=== PATIENT | female | born 1985 | race Caucasian/White ===

== ENCOUNTER 2018-05-14 17:31 | Outpatient (REF) | payer BC, SELFPAY ==
--- NOTE | 2018-05-14 16:00 | PAPFT_PTH ---
PATIENT: Louann Reyes LOC: [facility] U#:[id number] AGE/SX: 32/F ROOM: RE05/14/[address]: Sana Fernandez MD : [id number] BED: DIS: 05/14/2018 SPEC #: [id number] RECD: 05/14/18 17:54 STATUS: KATIE RENova #: [id number] CLAYTON: 05/14/18 16:[address]: Sana Fernandez DEPT: [facility] Cytology RECD BY: Verito Charles ENTERED: 05/14/18 17:54 SP TYPE: PAPFT OTHR DR: Michele Workman Tissues: 1 - CX/ENDOCX FOR PAP SMEARS Procedures: PAP THIN PREP/UVM Screening HPV DNA PROBE Comments: [id number]
== END 2018-05-14 17:51 ==
LOC: LBN 17:31
PROVIDERS: PCP Nurse Practitioner Family; Visit Provider Obstetrics & Gynecology
DX: Z12.4 Encounter for screening for malignant neoplasm of cervix (principal); Z11.51 Encounter for screening for human papillomavirus (HPV)
CPT/HCPCS: 88142; 87624

== ENCOUNTER 2018-06-07 01:33 | Outpatient (CLI) | payer BC, SELFPAY ==
--- NOTE | 2018-06-07 14:00 | DI.US_ITS ---
SYMPTOMS/DIAGNOSIS: CRAMPING, DYSMENORRHEA, N94.6 PELVIC ULTRASOUND: Pelvic ultrasound was performed transabdominally and transvaginally. Please see the accompanying data sheet for measurements of the pelvic structures. The ovaries have a normal follicular appearance. No free fluid identified in the cul-de-sac. Limited scanning of the kidneys is unremarkable. Myometrium appears normal. There are some apparent small calcifications in the endometrial stripe in the fundal region. Otherwise, the stripe appears homogeneous and measures about 4 mm in thickness. CONCLUSION: Endometrial calcifications noted in the fundus, which is a nonspecific finding. No other abnormalities seen.
== END 2018-06-07 01:53 ==
PROVIDERS: PCP Nurse Practitioner Family; Visit Provider Obstetrics & Gynecology
DX: N94.6 Dysmenorrhea, unspecified (principal); N85.8 Other specified noninflammatory disorders of uterus
CPT/HCPCS: 76830; 76856

== ENCOUNTER 2020-01-21 02:09 | Outpatient (CLI) | payer BC, SELFPAY ==
--- NOTE | 2020-01-21 11:45 | DI.US_ITS ---
EXAM: US HERNIA CLINICAL HISTORY: assess for hernia, prior abdominal surgery LOWER AREA , R10.9 TECHNIQUE: Ultrasound performed using standard protocol. COMPARISON: US US PELVIS TRANSVAGINAL from 06/07/2018 FINDINGS: Patient is reportedly experiencing right lower quadrant and lower midline abdominal pain. Evaluation of the right lower quadrant for hernia shows no focal evidence of hernia. If there is a high clinic al suspicion abdominal wall hernia additional evaluation with CT may be considered. IMPRESSION: No hernia identified. DATA REPOSITORY:
--- NOTE | 2020-01-21 11:45 | DI.US_ITS ---
EXAM: US PELVIS TRANSVAGINAL CLINICAL HISTORY: dub N93.8 ABNORMAL UTERINE AND VAGINAL BLEEDING TECHNIQUE: Ultrasound performed using standard protocol. COMPARISON: US US HERNIA from 01/21/2020 FINDINGS: Pelvic ultrasound was performed transabdominally and transvaginally. The ovaries have a normal folli cular appearance. Endometrial cavity contains a small amount of fluid, endometrial stripe is about 12 millimeters in th ickness. There is visible scar of the lower uterine segment. No other focal uterine abnor mality seen. No free fluid in the pelvis. Limited scanning of the kidneys is unremarkable. IMPRESSION: Fluid in endometrial cavity, no other abnormality seen. DATA REPOSITORY:
== END 2020-01-21 02:29 ==
PROVIDERS: PCP Nurse Practitioner Family; Visit Provider Obstetrics & Gynecology
DX: R10.31 Right lower quadrant pain (principal); Z98.891 History of uterine scar from previous surgery; N93.8 Other specified abnormal uterine and vaginal bleeding
CPT/HCPCS: 76857; 76830; 76856

== ENCOUNTER 2020-05-03 15:58 | Outpatient (CLI) | payer BC, SELFPAY ==
--- NOTE | 2020-05-03 15:49 | DI.RAD_ITS ---
EXAM: XR KNEE RT 3V AP,LAT,LATANYA CLINICAL HISTORY: eval R knee pain TECHNIQUE: COMPARISON: CR RIGHT KNEE LIMITED 1 OR 2 VIEW from 12/23/2015 FINDINGS: Three views were obtained. No bony or soft tissue abnormality seen. Alignment appears within normal limits. IMPRESSION: RADIATION DOSE DELIVERED: Total DLP
== END 2020-05-03 16:18 ==
PROVIDERS: PCP Nurse Practitioner Family; Referring Provider Nurse Practitioner Family; Visit Provider Student in an Organized Health Care Education/Training Program
DX: M25.561 Pain in right knee (principal)
CPT/HCPCS: 73562

== ENCOUNTER 2020-05-12 01:17 | Outpatient (CLI) | payer BC, SELFPAY ==
--- NOTE | 2020-05-12 07:00 | DI.MRI_ITS ---
EXAM: MR LOWER JOINT RT WO CLINICAL HISTORY: R knee pain, h/o surgery,INTERNAL DERANGEMENT,M23.91. TECHNIQUE: Multiplanar multisequence MRI was performed. COMPARISON: MR MR KNEE RT W/O CONTRAST from 12/22/2015 FINDINGS: BONES: There is no fracture or contusion pattern. JOINTS: Articular cartilage is unremarkable. Small amount of fluid in the joint space which is probab ly within normal limits. TENDONS: Extensor mechanism: Unremarkable. Medial retinaculum: Unremarkable. Lateral retinaculum: Unremarkable. Popliteus: Unremarkable. MUSCLES: Unremarkable. MENISCI: The medial meniscus is unremarkable. The lateral meniscus is unremarkable. SOFT TISSUES: Unremarkable. LIGAMENTS: Anterior Cruciate: Linear hyperintense signal is seen within the anterior cruciate ligament. Overall the fibers appear intact. Sprain or partial tear cannot be excluded. Posterior Cruciate: Unremarkable. Medial Collateral:Unremarkable. Lateral Collateral: Unremarkable. OTHER: IMPRESSION: 1. No evidence of a meniscal tear or osseous injury. 2. Linear hyperintense signal seen in the anterior cruciate ligament. Overall fibers appear to be in tact. Sprain or partial tear may be considered. DATA REPOSITORY:
== END 2020-05-12 01:37 ==
PROVIDERS: PCP Nurse Practitioner Family; Visit Provider Student in an Organized Health Care Education/Training Program
DX: M23.8X1 Other internal derangements of right knee (principal)
CPT/HCPCS: 73721

== ENCOUNTER 2020-06-07 16:02 | Outpatient (CLI) | payer BC, SELFPAY ==
--- NOTE | 2020-06-07 15:45 | DI.RAD_ITS ---
EXAM: XR HIP RT AP LAT ONLY CLINICAL HISTORY: R hip and knee pain. TECHNIQUE: 2D digital imaging was performed. COMPARISON: No exams were available for comparison FINDINGS: BONES: No acute fracture is present. No bony destructive lesion is seen. JOINTS: No dislocation present. Is minimal spurring from the inferior acetabulum. SOFT TISSUE: An IUD is incidentally noted. IMPRESSION: Minimal degenerative changes of the inferior hip joint. DATA REPOSITORY: RADIATION DOSE DELIVERED:
== END 2020-06-07 16:22 ==
PROVIDERS: PCP Nurse Practitioner Family; Referring Provider Nurse Practitioner Family; Visit Provider Student in an Organized Health Care Education/Training Program
DX: M16.11 Unilateral primary osteoarthritis, right hip (principal)
CPT/HCPCS: 73502

== ENCOUNTER 2020-08-26 10:21 | Outpatient (CLI) | payer BC, SELFPAY ==
[2020-08-26 20:23] LABS: COVID-19 RT-PCR UVMMC Result Negative (Negative)
== END 2020-08-26 10:41 ==
PROVIDERS: PCP Nurse Practitioner Family; Visit Provider Nurse Practitioner Family
DX: Z11.52 Encounter for screening for COVID-19 (principal)
CPT/HCPCS: U0003

== ENCOUNTER 2020-11-19 02:48 | Outpatient (CLI) | payer BC, SELFPAY ==
[2020-11-19 12:11] LABS: ESR 7 mm//hr (0-20)
[2020-11-19 13:42] LABS: C-Reactive Protein 0.36 mg/dL (0.0-0.3)
[2020-11-19 16:35] LABS: Rheumatoid Factor <8.6 IU/mL (<12.0)
[2020-11-21 18:49] LABS: Anaplasma phagocytophilum Negative (Negative); B. miyamotoi PCR Negative (Negative); Babesia divergens/MO-1 Negative (Negative); Babesia duncani Negative (Negative); Babesia microti Negative (Negative); Ehrlichia chaffeensis Negative (Negative); Ehrlichia ewingii/canis Negative (Negative); Ehrlichia muris eauclairensis Negative (Negative)
[2020-11-22 11:15] LABS: Lyme Ab w Rflx to Lyme Confirm Negative (Negative)
[2020-11-22 14:41] LABS: ANA Interpretation Negative (Negative)
== END 2020-11-19 02:49 | disposition home or self-care (01) ==
LOC: LBO 02:48
PROVIDERS: PCP Nurse Practitioner Family; Visit Provider Student in an Organized Health Care Education/Training Program
DX: M25.561 Pain in right knee (principal); G89.29 Other chronic pain
CPT/HCPCS: 36415; 85652; 87798; 86038; 86140; 86431; 86618

== ENCOUNTER 2020-12-29 10:56 | Emergency (ER) | payer BC, SELFPAY ==
[2020-12-29 11:06] VITALS: BP 129/77; PULSE 78; TEMP 36.3; O2SAT 97
--- NOTE | 2020-12-29 11:45 | DI.US_ITS ---
Exam(s) US LOWER EXTREMITY VENOUS RT EXAM: US LOWER EXTREMITY VENOUS RT CLINICAL HISTORY: pain/swelling TECHNIQUE: Grayscale, color, and doppler imaging of the deep venous system of the right lower extrem ity was performed. COMPARISON: US US PELVIS TRANSVAGINAL from 01/21/2020 FINDINGS: There is no evidence of intraluminal thrombus and there is normal compression and augmentation demons trated within the common femoral vein, femoral vein, and popliteal vein. In the ipsilateral calf the interrogated veins also exhibit normal compression/ augmentation properti es. The ipsilateral saphenofemoral junction is patent. IMPRESSION: 1. No evidence of DVT in the right lower extremity. 2. DATA REPOSITORY:
--- NOTE | 2020-12-29 11:50 | ED.GENADUL_ITS ---
Discharge Plan Disposition Patient Disposition: HOME Condition: Stable Discharge Details Clinical Impression: Right knee pain Primary Care Provider: Michele Workman ED Provider: Rubio Srinivasan Home Meds and New Rx's Prescriptions: New cyclobenzaprine 5 mg tablet 5 mg PO TID PRNQty: 10 RF: 0 Continued valacyclovir [Valtrex] 1 gram tablet 1,000 mg PO DAILY Qty: 60 RF: 0 Zyrtec 10 mg capsule 10 mg PO DAILY RF: 0 Mirena 20 mcg/24 hours (5 yrs) 52 mg intrauterine device 1 device IY ONCE RF: 0 budesonide-formoterol [Symbicort] 10.2 GM HFA aerosol inhaler 2 puff Inhalation BID RF: 0 albuterol sulfate [ProAir HFA] 8.5 GM HFA aerosol inhaler 1 - 2 puff Inhalation Q6H PRN RF: 0 Knee Brace Qty: 1 RF: 0 (DME) Custom Fitted Knee Brace See Rx Instructions .ROUTE .MEDSUPPLY Qty: 1 RF: 0 acetaminophen [Tylophen] 500 MG capsule 500 mg PO Q6H PRN PRNQty: 120 RF: 0 naproxen sodium [Aleve] 220 mg Tablet 220 mg PO BID RF: 0 Discharge Instructions Instructions: Knee Pain (ED) Additional Instructions: At this time your x-ray and ultrasound are unremarkable for emergent process. We have fitted you with our hinged brace here in the ER, when you feel like your normal hinged brace is more comfortable I do recommend wearing that brace instead. Use crutches as needed, advance activity as tolerated. [id number] Tylenol and/or Motrin as directed for discomfort. Flexeril as directed, this medication may cause drowsiness. Rest, elevate, cool compresses every 2 hours for 20 minutes. Please watch for new or worsening symptoms and return to the ER for any concerns. I do understand that you are having a difficult time with your second opinion by orthopedics in a timely fashion, I do recommend following up with orthopedics as soon as possible. Discharge Data Discharge Date/Time-TO BE ENTERED AT DEPARTURE: 12/29/20 14:15 Medical Decision Making This is a 35-year-old female with chronic right knee pain, has been seen by orthopedics and is now seeking a second opinion. Unfortunately she has already had a MRI, not sure what more I have to offer here in the ER setting. Given she is reporting increased pain, will obtain ultrasound for potential DVT. Patient reports that her pain feels deep in my upper leg, is requesting a femur x- ray. Given there is no recent obvious trauma, I do not believe that obtaining repeat x-ray of the knee is indicated. No evidence of septic joint. Patient will be given p.o. Tylenol and I will provide a prescription for Flexeril for her spasms. Both x-ray of the right femur and ultrasound of right lower extremity read as negative per radiology. Discussed imaging with patient. Given she feels as though her current splint does not fit properly I will provide her with a hinged brace that we have here in our ER and she will go back to her typical brace when her swelling is improved. We discussed importance of resting, elevating, icing, wearing a brace and using crutches, advancing activity as tolerated. I will provide a short- term prescription for muscle relaxers. Discussed the importance of outpatient orthopedic follow-up for her second opinion. Patient was given standard discharge and return precautions. She has no additional questions or concerns and is comfortable with this plan. Medical Records Medical records reviewed: Yes I reviewed the patient's medical records. Imaging Data Radiologic Study: Attestation: I personally reviewed and interpreted this imaging study as follows: Imaging: X-Ray Radiologist's impression: Right femur negative Radiologic Study #2: Attestation: I personally reviewed and interpreted this imaging study as follows: Imaging: Ultrasound Radiologist's impression: Right lower extremity negative HPI General Mode of arrival: ambulatory (crutches) . Date/Time Provider Initiated Documentation: 12/29/20 11:31 . Limitations to Documentation: no limitations . Information obtained by: patient . HPI Narrative: This is a 35-year-old female with past medical history of asthma, dysmenorrhea, chronic right knee pain presenting for increased right knee pain. She states that last February she tore her ACL, was seen by Dr. Madison, is in the process of trying to obtain a second opinion but that scheduled appointment is not until July. Currently Dr. Madison is on vacation, Dr. Deleon is unable to see her in the meantime, and [facility] will not move her appointment up. She already has crutches and a hinged brace. She states that a few days ago walking down the stairs she feels inc reased pain in her knee that traveled up her leg. She reports that her upper leg seems to be spasming at times, is more swollen than baseline, she is having difficulty wearing her typical brace. She denies any chest pain, shortness of breath, fever, redness, numbness or weakness. Does report occasional tingling in her distal right leg. Patient has been offered muscle relaxer therapy because of her occasional spasms in her right leg but has declined up to this point. Patient reports that given her increased pain, she is simply not sure what to do next and given she cannot be seen by orthopedics she is coming to the ER instead. She denies recent illness or trauma. Reports the pain is severe worse with movement or bearing weight. Related Data Home Medications Medication Instructions Recorded Confirmed budesonide-formoterol [Symbicort] 2 puff INHALATION BID inhaler 11/16/14 12/29/20 albuterol sulfate [ProAir HFA] 1 - 2 puff INHALATION Q6H PRN 12/23/15 12/29/20 inhaler acetaminophen [Tylophen] 500 mg PO Q6H PRN PRN #120 cap 08/08/16 12/29/20 cetirizine 10 mg capsule 10 mg PO DAILY 07/11/19 12/29/20 valacyclovir 1 gram tablet 1,000 mg PO DAILY #60 tab 01/28/20 12/29/20 levonorgestrel 20 mcg/24 hours (6 1 device IY ONCE 04/19/20 12/29/20 yrs) 52 mg intrauterine device Custom Fitted Knee Brace #1 ea 06/24/20 cyclobenzaprine 5 mg PO TID PRN #10 tab 12/29/20 naproxen sodium [Aleve] 220 mg PO BID 12/29/20 12/29/20 Previous Rx's Medication Instructions Recorded acetaminophen [Tylophen] 500 mg PO Q6H PRN PRN #120 cap 08/08/16 valacyclovir 1 gram tablet 1,000 mg PO DAILY #60 tab 01/28/20 Custom Fitted Knee Brace #1 ea 06/24/20 cyclobenzaprine 5 mg PO TID PRN #10 tab 12/29/20 Allergies Allergy/AdvReac Type Severity Reaction Status Date / Time Sulfa (Sulfonamide Allergy Severe hives Verified 12/29/20 11:14 Antibiotics) clarithromycin Allergy Verified 12/29/20 11:14 Penicillins Allergy Verified 12/29/20 11:14 doxycycline AdvReac Intermediate pt's hands Verified 12/29/20 11:14 turned orange lactose AdvReac Intermediate Diarrhea Verified 12/29/20 11:14 General Stated Complaint: Orthopedic BRANDO: 3 Review of Systems Constitutional Constitutional: Denies fever(s) Cardiovascular Cardiovascular: Denies chest pain and Denies dyspnea Respiratory Respiratory: Denies cough and Denies dyspnea Musculoskeletal Musculoskeletal: Denies deformity, Reports arthralgias, Denies numbness and Reports stiffness Integumentary/Breasts Skin/Breast: Denies erythema Neurologic Neurologic: Denies numbness PFSH Medical History Asthma Dysmenorrhea Genital herpes simplex IUD surveillance Pelvic pain Surgical History section (02/22/12) primary elective c/s (patient concern re prior hx HSV) Social History Smoking/Tobacco Use Status: Never Smoking risk assessment performed?: Yes Alcohol Intake: never Drug use: Never Substance use type: does not use Current gender identity: female Do you feel safe at home: Yes Do you feel safe in your relationship?: Yes Female Reproductive History Menstrual control method: permanent sterilization History History 2 Para Hx # Term Pregnancies 2 Multiple births Hx # Pregnancies Ectopic pregnancies AB induced Hx Number of Living Children AB spontaneous Exam Const General: cooperative, healthy appearing, comfortable and no acute distress Orientation: alert and awake HENVA Head: normal to inspection, normocephalic and atraumatic Eyes General: appearance normal, both eyes and all related structures Conjunctivae: conjunctivae normal Neck Neck: normal visual inspection, trachea midline and supple Resp Effort & Inspection: normal respiratory effort and able to speak in complete sentences Cardio Rate: regular rate Rhythm: regular rhythm Skin General skin exam: no rashes or lesions noted Neuro General: patient alert, patient awake, moves all extremities and no focal motor deficits Cognition: normal cognition Speech: speech normal Gait: gait assisted Method: crutches Motor: muscle tone normal throughout Sensory Exam: no sensory deficits noted Extrem General: full ROM and capillary refill normal Right lower extremity: full ROM, normal capillary refill, hip/thigh (Hip unremarkable), knee Details: tenderness, swelling, normal ROM and knee ligament exam normal; no ecchymosis and no crepitus, lower leg Details: normal to inspection; no erythema, no tenderness, no localized swelling and no palpable cords, ankle Details: normal to inspection and no edema; no tenderness and no swelling and foot Details: normal capillary refill and normal to inspection Other: Right knee with diffuse mild anterior and superior discomfort as well as swelling. There is no warmth, erythema, ecchymosis, deformity. Skin is intact. Full range of motion. Neuro, vascular, tendon intact. Calf is unremarkable. Without erythema, warmth, palpable cord. Normal dorsalis pedal pulse and capillary refill. Psych Appearance: grossly normal Mental Status: mental status grossly normal Course Vital Signs Vital signs: Vital Signs Temperature 36.3 C L 12/29/20 11:06 Pulse 78 12/29/20 11:06 Blood Pressure 129/77 12/29/20 11:06 Pulse Oximetry 97 12/29/20 11:06 Temperature 36.3 C L 12/29/20 11:06 Temperature Source Temporal Artery Scan 12/29/20 11:06 Pulse 78 12/29/20 11:06 Respiratory Effort Non-Labored 12/29/20 11:12 Blood Pressure 129/77 12/29/20 11:06 Blood Pressure Position Sitting 12/29/20 11:06 Pulse Oximetry 97 12/29/20 11:06 Oxygen Delivery Method Trach Collar 12/29/20 11:06 Oxygen Flow Rate 0 12/29/20 11:06 Pain Level 8 12/29/20 11:06
--- NOTE | 2020-12-29 12:15 | DI.RAD_ITS ---
Exam(s) XR FEMUR RT EXAM: XR FEMUR RT CLINICAL HISTORY: pain. TECHNIQUE: 2D digital imaging was performed. COMPARISON: No exams were available for comparison FINDINGS: There is no evidence of fracture of the right femur. Region of the hip appears unremarkable. No oss eous lesions. No evidence of hip dysplasia. No joint space narrowing. IUD noted in the central pel vis. IMPRESSION: No significant radiograph findings in the right femur. DATA REPOSITORY: RADIATION DOSE DELIVERED:
[2020-12-29] MEDS: Acetaminophen 500 MG TAB (13:36)
== END 2020-12-29 14:15 | disposition home or self-care (01) ==
PROVIDERS: Emergency Provider Physician Assistant; PCP Nurse Practitioner Family
DX: M25.561 Pain in right knee (principal)
CPT/HCPCS: 73552; 99284; 93971; 99283

== ENCOUNTER 2021-02-08 16:02 | Outpatient (CLI) | payer BC, SELFPAY ==
--- NOTE | 2021-02-08 15:45 | DI.RAD_ITS ---
Exam(s) XR FOOT LT LIMITED EXAM: XR FOOT LT LIMITED CLINICAL HISTORY: left foot pain. TECHNIQUE: 2D digital imaging was performed. COMPARISON: Prior outside institution x-rays 01/31/2021 FINDINGS: Again noted is a previously described transverse fracture at the level of the neck of the proximal ph alanx of the 2nd toe. Appearance is unchanged. No disc significant displacement. No intra-articula r extension. No radiopaque foreign body. No osseous lesions. IMPRESSION: Proximal phalanx 2nd toe fractures above, radiographically unchanged from 01/31/2021. DATA REPOSITORY: RADIATION DOSE DELIVERED:
== END 2021-02-08 16:03 | disposition home or self-care (01) ==
LOC: DIORS 16:02
PROVIDERS: PCP Nurse Practitioner Family; Referring Provider Nurse Practitioner Family; Visit Provider Student in an Organized Health Care Education/Training Program
DX: M79.672 Pain in left foot (principal); S92.592D Other fracture of left lesser toe(s), subsequent encounter for fracture with routine healing
CPT/HCPCS: 73620

== ENCOUNTER 2021-02-24 02:01 | Outpatient (CLI) | payer BC, SELFPAY ==
--- NOTE | 2021-02-24 14:35 | DI.MRI_ITS ---
Exam(s) MR LOWER JOINT RT WO EXAM: MR LOWER JOINT RT WO CLINICAL HISTORY: RIGHT KNEE PAIN,INTERNAL DERANGEMENT,M25.561,M23.91. TECHNIQUE: Multiplanar multisequence MRI Examination was performed. COMPARISON: 12 May 2020 FINDINGS: There is a small joint effusion. The marrow signal is normal. There is again noted to be fluid with in the anterior cruciate ligament. Posterior cruciate ligament, medial and lateral collateral ligame nts and extensor mechanism appear intact. No meniscal tear is are seen. No cartilage defects are id entified. IMPRESSION: Stable appearance of fluid within the anterior cruciate ligament. Small joint effusion. No meniscal tear. DATA REPOSITORY:
== END 2021-02-24 02:21 ==
PROVIDERS: PCP Nurse Practitioner Family; Visit Provider Student in an Organized Health Care Education/Training Program
DX: M23.91 Unspecified internal derangement of right knee (principal); M25.461 Effusion, right knee
CPT/HCPCS: 73721

== ENCOUNTER 2021-04-05 10:27 | Outpatient (CLI) | payer BC, SELFPAY ==
--- NOTE | 2021-04-05 10:15 | DI.RAD_ITS ---
Exam(s) XR FOOT LT LIMITED EXAM: XR FOOT LT LIMITED CLINICAL HISTORY: fx of toe of left foot f/u TECHNIQUE: COMPARISON: CR XR FOOT LT LIMITED from 02/08/2021 FINDINGS: Two views were obtained. Previous described fracture of the proximal phalanx of the 2nd toes again n oted and appears to be healing with no change in alignment comparison with previous examination of Leonarda . IMPRESSION: RADIATION DOSE DELIVERED: Total DLP
== END 2021-04-05 10:28 | disposition home or self-care (01) ==
LOC: DIORS 10:28
PROVIDERS: PCP Nurse Practitioner Family; Referring Provider Nurse Practitioner Family; Visit Provider Student in an Organized Health Care Education/Training Program
DX: S92.512D Displaced fracture of proximal phalanx of left lesser toe(s), subsequent encounter for fracture with routine healing (principal); X58.XXXD Exposure to other specified factors, subsequent encounter
CPT/HCPCS: 73620

== ENCOUNTER 2021-06-09 10:03 | Outpatient (CLI) | payer BC, SELFPAY ==
[2021-06-09 10:17] VITALS: BP 119/70; PULSE 81; RESP 18; TEMP 37; O2SAT 97
[2021-06-09 10:40] VITALS: PULSE 88; O2SAT 100
--- NOTE | 2021-06-09 10:43 | PDOC.PAIN_ITS ---
Pain Clinic Procedure Note Procedure Note Procedure Note: INTRA-ARTICULAR RIGHT KNEE JOINT SYNVISC-ONE INJECTION Date of Service: June 09, 2021 Patient: Louann Reyes Provider: Timi Madsen DO, MPH Pre-operative diagnosis: Knee Osteoarthritis Post-operative diagnosis: Same Pre-procedure pain: VAS= 1-2/10 COMMENTS: I previously evaluated her in the office Louann Reyes has been referred to the [facility] for intra- articular RIGHT knee joint Synvisc injection. Louann was interviewed and the medical record reviewed. There were no medical, pharmacologic, radiographic or other structural contraindications to attempting fluoroscopically guided intra-articular RIGHT knee joint Synvisc injection. Risks and potential side effects as well as potential benefit of the procedure were reviewed with Louann, and HER voiced concerns were addressed. After I believed that the patient was completely informed, the printed consent form was signed. Standard time-out procedure was performed. Louann was placed in the supine position on the fluoroscopy table and automated b lood pressure cuff and pulse oximeter applied. The skin entry point for approaching superolateral aspect of the RIGHT patellafemoral area was identified under the most advantageous fluoroscopic view and marked. Following thorough Chlorhexadine preparation of the skin and draping, 1% lidocaine infiltration of the skin entry point and subcutaneous tissues was accomplished using a 1.5 25G needle. Next, the 1.5 22G needle was advanced to the center of the patella in a lateral to medial approach under fluoroscopic guidance into the RIGHT knee joint. Intra-articular placement was confirmed by a clear arthrogram resulting from the injection of 2 ml Omnipaque 240. Next, 6 mls of Synvisc-One mixed with 3 mls of 1% Lidocaine was injected into the joint. (48 mls of Omnipaque was wasted) Louann's vital signs were stable throughout the procedure and were as recorded in the docflowsheet by the nursing staff. If given, dosages of intravenous drugs for anxiolysis and analgesia were documented in MAR. Follow up plans and appointments were discussed with the Louann. Post procedure instruction was given as documented in nursing documentation and having met discharge criteria, Louann was discharged from the [facility]. COMMENTS: No apparent complications. Post-procedure pain: VAS= 0/10 F/U with our office by phone I personally performed this entire procedure. Timi Madsen DO, MPH Attending Physician [employer], Subspecialty board certified in Pain Management
--- NOTE | 2021-06-09 10:46 | DI.RAD_ITS ---
Exam(s) XR PAIN CLINIC FLUORO JOINT IN EXAM: XR PAIN CLINIC FLUORO JOINT IN CLINICAL HISTORY: Dx: Internal derangement of right knee TECHNIQUE: 2D and realtime digital imaging was performed. Radiologist not present. CONTRAST MATERIAL: None. COMPARISON: MR MR LOWER JOINT RT WO from 02/24/2021 MR MR LOWER JOINT RT WO from 02/24/2021 FINDINGS: Fluoroscopy was provided for pain management therapy. Please refer to procedure report or details. Submitted image reveals needle access into the suprapatellar bursa via lateral approach. Contrast in jected Cumulative dose: Ka,r=0.56 mGy IMPRESSION: RADIATION DOSE DELIVERED:
[2021-06-09] MEDS: Hylan G-F 20 48 MG/6 ML SYR IU (10:48)
[2021-06-09] MEDS: Omnipaque 240 MG/ML 50 ML BTL IJ (10:48)
== END 2021-06-09 10:04 | disposition home or self-care (01) ==
LOC: PC 10:04
PROVIDERS: PCP Nurse Practitioner Family; Visit Provider Preventive Medicine Occupational Medicine
DX: M17.11 Unilateral primary osteoarthritis, right knee (principal)
CPT/HCPCS: 20610; 77002; J3490; Q9967

== ENCOUNTER 2021-10-13 11:23 | Outpatient (CLI) | payer BC, SELFPAY ==
--- NOTE | 2021-10-13 06:00 | DI.RAD_ITS ---
Exam(s) XR PAIN CLINIC FLUORO JOINT IN EXAM: XR PAIN CLINIC FLUORO JOINT IN CLINICAL HISTORY: Dx: Chronic Knee pain TECHNIQUE: 2D and realtime digital imaging was performed. Radiologist not present. CONTRAST MATERIAL: None. COMPARISON: No exams were available for comparison FINDINGS: Fluoroscopy was provided for pain management therapy. Please refer to procedure report or details. Cumulative dose: Tutur=4.47 mGy IMPRESSION: RADIATION DOSE DELIVERED:
[2021-10-13 11:34] VITALS: BP 120/81; PULSE 78; RESP 16; TEMP 36.7; O2SAT 97
[2021-10-13] MEDS: Omnipaque 240 MG/ML 50 ML BTL IJ (12:14)
[2021-10-13] MEDS: Bupivacaine 0.5% Pres-Free 10 ML VIAL IJ (12:14)
[2021-10-13 12:15] VITALS: BP 116/78; PULSE 60; RESP 18; O2SAT 99
--- NOTE | 2021-10-13 12:19 | PDOC.PAIN ---
Pain Clinic Procedure Note Procedure Note Procedure Note: RIGHT GENICULAR NERVE BLOCK Date of Service: October 13, 2021 Patient: Louann Reyes Provider: Timi Madsen DO, MPH Pre-operative diagnosis: Knee pain Post-operative diagnosis: Same Pre-procedure pain: VAS= 6/10 COMMENTS: She was previously evaluated in our clinic. Louann Reyes has been referred [facility] the [facility] for RIGHT genicular nerve block. Louann was interviewed and the medical record reviewed. There were no medical, pharmacologic, radiographic or other structural contraindications to attempting fluoroscopically guided RIGHT genicular nerve block. Risks and potential side effects as well as potential benefit of the procedure were reviewed with Louann , and HER voiced concerns were addressed. After I believed that the patient was completely informed, the printed consent form was signed. Standard time-out procedure was performed. Louann was placed in the supine position on the fluoroscopy table and automated blood pressure cuff and pulse oximeter applied. The skin entry points for approaching RIGHT superolateral genicular nerve, the superomedial genicular nerve, the terminal branch of the nerve vastus intermedius and the inferomedial genicular was identified under the most advantageous fluoroscopic view and marked. Following thorough Chlorhexadine preparation of the skin and draping, 1% lidocaine infiltration of the skin entry point and subcutaneous tissues was accomplished using a 1.5 25G needle. Next, the 3.5 25G spinal needle was advanced to os at the location of the specific nerve root using fluoroscopic guidance. Next, 1 ml of 1% Lidocaine was injected at each site. The needles were removed without difficulty. Oneils vital signs were stable throughout the procedure and were as recorded in the docflowsheet by the nursing staff. If given, dosages of intravenous drugs for anxiolysis and analgesia were documented in MAR. Follow up plans and appointments were discussed with the Louann . Post procedure instruction was given as documented in nursing documentation and having met discharge criteria, Louann was discharged from the [facility]. COMMENTS: No apparent complications. Post-procedure pain: VAS = 8/10. The patient will keep track of her {RIGHT knee pain over the next four hours. If Louann has sufficient pain relief, Louann will be a candidate for radiofrequency ablation at the same nerves. Mason WJ1, Hanny SJ, Chaitanya JG, Rodrigo PachecoG, Crow LEON, Rufina PH, Scott JW. Radiofrequency treatment relieves chronic knee osteoarthritis pain: a double-blind randomized controlled trial. Pain. 2011 Oct;152(3):481-7. doi: 10.1016/j.pain.2010.09.029. Subha S1, Orion ON2, Russell Y3, ?zl?belkys P2, Juanpablo U1, Devendra ?m?rl? I. Which one is more effective for the clinical treatment of chronic pain in knee osteoarthritis: radiofrequency neurotomy of the genicular nerves or intra-articular injection? Int J Rheum Dis. 2016 Mar 31. F/U with our office by phone I personally performed this entire procedure. Timi Madsen DO, MPH Attending Physician [facility]
== END 2021-10-13 11:24 | disposition home or self-care (01) ==
LOC: PC 11:24
PROVIDERS: PCP Nurse Practitioner Family; Visit Provider Preventive Medicine Occupational Medicine
DX: M25.561 Pain in right knee (principal)
CPT/HCPCS: 64454; 77002; Q9967

== ENCOUNTER 2022-03-16 15:47 | Outpatient (CLI) | payer BC, SELFPAY ==
[2022-03-16 17:09] LABS: TSH (W/Ref FT4) 2.06 uIU/mL (0.36-3.74)
[2022-03-18 09:03] LABS: HIV-1/2 Ag & Ab Screen Negative (Negative)
[2022-03-18 15:08] LABS: Chlamydia Result Negative (Negative); GC Result Negative (Negative)
[2022-03-20 10:55] LABS: Syphilis Serology (RPR) Negative (Negative)
[2022-03-20 11:04] LABS: Hepatitis A Antibody IgM Negative (Negative); Hepatitis B Core Antibody Negative (Negative); Hepatitis B surface Ag Negative (Negative); Hepatitis C Ab w Rflx HCV PCR Negative (Negative)
== END 2022-03-16 15:48 | disposition home or self-care (01) ==
LOC: LBO 15:48
PROVIDERS: PCP Nurse Practitioner Family; Visit Provider Obstetrics & Gynecology
DX: N92.5 Other specified irregular menstruation; Z11.3 Encounter for screening for infections with a predominantly sexual mode of transmission; Z11.59 Encounter for screening for other viral diseases; Z11.4 Encounter for screening for human immunodeficiency virus [HIV]; R63.4 Abnormal weight loss
CPT/HCPCS: 36415; 86704; 86709; 86803; 87340; 87389; 87491; 87591; 84443; 86592

== ENCOUNTER 2022-04-10 10:43 | Day surgery (SDC) | payer BC, SELFPAY ==
--- NOTE | 2022-04-10 06:39 | W.COLOREPORT ---
Colonoscopy Report Date of procedure: 04/10/22 Pre-op diagnosis general: Rectal bleeding Post-op diagnosis procedure note: other (polyps) Procedure: Colonoscopy with polypectomy Surgeon: Suzette Heck Anesthesia Type: General:No Airway Estimated blood loss (mL): 3 Pathology: other (cecal polyp) Complications: None Disposition: same day Indications: The patient? is a pleasant ? 36-year-old female who is here because of rectal bleeding. ? The bleeding is cyclical and happens either 2 to 3 days before or after her period.? It can be bright red or dark.? It can be a scant amount or clots.? Due to the fact this is cyclical I am not sure whether this would be just from hemorrhoids.? I am also worried that she is having clots.? I have recommended that we do a colonoscopy and if I find some internal hemorrhoids we will go ahead and do a banding as well.? The procedure and risks were discussed.? The prep was reviewed in detail.? Risks, benefits and complications have been reviewed. Complications include but are not limited to bleeding, pain, perforation, missed small lesion/polyp, sore throat, aspiration and adverse reaction to the medications. Questions were entertained and answered to their satisfaction and they wished to proceed. No guarantees were given or implied. Prep: Miralax/Dulcolax Procedure Start Time: 13:16 Procedure End Time: 13:39 Retraction Time: 10 minutes Findings: 2 polyps Procedure Description: After informed consent was obtained the patient was taken to the procedure room and placed in a left decubitous position. Monitors were applied and a time out was done. The patients name, date of , procedure, allergies to medications and metal in their body was reviewed. The patient was then sedated. Once sedated and comfortable a rectal exam was done. External exam was normal. Internal exam revealed a normal sphincter tone and no palpable masses. The scope was then introduced and retro-flexed. No internal hemorrhoids, polyps or masses were identified on retro-flexion. There were internal hemorrhoidal skin tags but nothing to band. The scope was then advanced to the cecum without difficulty. The ileocecal valve and appendiceal orifice were identified. The prep was adequate. The scope was then slowly retracted over 10 minutes back into the rectum. Polyps were removed with cold forceps in the cecum and sigmoid colon. There was no diverticulosis noted. The scope was removed and the patient was woken up and taken back to Same day surgery in stable condition. The patient tolerated the procedure well and there were no immediate complications. Follow up: The patient should follow up in 5 years unless they develop changes in bowel habits or other new gastrointestinal complaints.
--- NOTE | 2022-04-10 06:41 | W.PM.DSUDISC ---
Discharge Plan Disposition Patient Disposition: HOME Condition: Good Discharge Details Reason For Visit: colonoscopy Attending Provider: Suzette Heck Primary Care Provider: Michele Workman Home Meds and New Rx's Prescriptions: Continued albuterol sulfate 2.5 mg /3 mL (0.083 %) solution for nebulization 2.5 mg inhalation Q4H PRN Zyrtec 10 mg capsule 10 mg PO DAILY prochlorperazine maleate 5 mg tablet See Rx Instructions PO TID PRN (Reason: nausea and vomiting) Qty: 90 3RF Rx Instructions: 5-10mg PO three times a day PRN; budesonide-formoterol [Symbicort] 10.2 GM HFA aerosol inhaler 2 puff Inhalation BID Label Comments: 08/03/16 Pt states she does not use. PG 5.5.16 pt states this is a PRN med.HE Knee Brace Qty: 1 0RF Rx Instructions: Custom hinged knee brace with open patella for ligamentous instability. (DME) Custom Fitted Knee Brace See Rx Instructions .ROUTE .MEDSUPPLY Qty: 1 0RF Rx Instructions: Please fit and place a stability knee brace for ligamentous laxity and hyperextension of right knee. valacyclovir [Valtrex] 500 mg tablet 500 mg PO DAILY Qty: 90 3RF acetaminophen [Tylophen] 500 MG capsule 500 mg PO Q6H PRN PRNQty: 120 0RF Discontinued bisacodyl [Dulcolax (bisacodyl)] 5 mg tablet,delayed release (DR/EC) 5 mg PO ONCE Qty: 4 0RF Rx Instructions: Take according to provider's instructions for colonoscopy prep. polyethylene glycol 3350 17 gram/dose powder 17 g PO ONCE Qty: 238 0RF Rx Instructions: To be taken as directed by prescriber's office for colonoscopy prep. Discharge Instructions Instructions: Colorectal Polyps (DC) Additional Instructions: Findings: 2 polyps Internal hemorrhoid skin tags Follow up: 5 years Please call if you develop: fevers >101.5 Nausea or Vomiting Abdominal pain that is not transient Rectal bleeding that is more then a tbsp A hard abdomen and inability to pass gas DAY SURGERY UNIT POST ENDOSCOPY INSTRUCTIONS Instructions for everyone who is given Anesthesia: For your safety, please do the following for the next 24 Hours: a. Do not drive or operate dangerous equipment b. Do not drink alcohol beverages or use any recreational drugs for the first 24 hours or while taking pain medications. The medications in your body may have a reaction that can be dangerous. c. Do not make any important decisions or sign any important papers 1. Generally there are no restrictions on your activity after a day or so has gone by, but you may feel a bit fatigued for a few days. 2. After you arrive home you may have a light meal and return to a normal diet as you can tolerate it without feeling sick to your stomach. 3. After surgery, you may feel pain or discomfort. This should be only transient, but if it persists please contact your doctor. 4. If there are any questions regarding the findings of your procedure, please feel free to contact your doctor. 6. If you are unable to contact your doctor with a problem, contact the hospital at [phone]. 7. Continue all your regular medications unless directed otherwise. I understand the above instructions and have no questions. Signature of Patient or Responsible Adult Escort Date/Time Name of Responsible Adult Escort Signature of Nurse Date/Time Activity:: Activity as Tolerated Diet:: As Tolerated Discharge Orders Discharge Orders: Discharge Order (Routine); Ordered 04/10/22 Ordered By: Suzette Heck
[2022-04-10 11:24] VITALS: BP 134/73; PULSE 83; RESP 16; TEMP 36.7; O2SAT 95
[2022-04-10] MEDS: Lactated Ringers 1,000 ML 80 ML IV (12:05)
--- NOTE | 2022-04-10 12:37 | W.ANESPRE ---
General Info Date of Service Date Performed: 04/10/22 Height: 5 ft 1 in Weight: 73.4 kg Body Mass Index (BMI): 30.5 Surgical Procedure: Operation Date: 04/10/22 14:10 Proposed Procedure Side Surgeon p Colonoscopy Suzette Heck MD s Internal Hemorrhoid Banding Suzette Heck MD Meds Allergies and Home Medications Allergies Allergy/AdvReac Type Severity Reaction Status Date / Time Sulfa (Sulfonamide Allergy Severe hives Verified 04/10/22 11:21 Antibiotics) amoxicillin [From Augmentin] Allergy Unknown Verified 04/10/22 11:21 clavulanic acid Allergy Unknown Verified 04/10/22 11:21 Quinolones Allergy Unknown Verified 04/10/22 11:21 clarithromycin Allergy Verified 04/10/22 11:21 Penicillins Allergy Swelling/Ed Verified 04/10/22 11:21 mazin doxycycline AdvReac Intermediate pt's hands Verified 04/10/22 11:21 turned orange lactose AdvReac Intermediate Diarrhea Verified 04/10/22 11:21 NSAIDS (Non-Steroidal AdvReac Pt reports Verified 04/10/22 11:21 Anti-Inflamma Vomiting Chloraprep Allergy Skin Rash Uncoded 04/10/22 11:21 Home Medication Medication Instructions Recorded budesonide-formoterol HFA 80 2 puff inhalation BID 11/16/14 mcg-4.5 mcg/actuation aerosol inhaler (Symbicort) acetaminophen 500 mg capsule 500 mg PO Q6H PRN PRN #120 caps 08/08/16 (Tylophen) cetirizine 10 mg capsule (Zyrtec) 10 mg PO DAILY 07/11/19 Custom Fitted Knee Brace #1 ea 06/24/20 albuterol sulfate 2.5 mg/3 mL 2.5 mg inhalation Q4H PRN 04/14/21 (0.083 %) solution for nebulization prochlorperazine maleate 5 mg See Rx Instructions PO TID PRN 07/19/21 tablet nausea and vomiting #90 tabs valacyclovir 500 mg tablet 500 mg PO DAILY #90 tabs 02/02/22 (Valtrex) bisacodyl 5 mg tablet,delayed 5 mg PO ONCE #4 tabs 04/04/22 release (Dulcolax (bisacodyl)) polyethylene glycol 3350 17 17 g PO ONCE #238 grams 04/04/22 gram/dose oral powder Current Visit Medications: Current Medications Generic Name Dose Route Start Last Admin Trade Name Freq PRN Reason Stop Dose Admin Hyoscyamine Sulfate 0.125 mg 04/10/22 06:41 Hyoscyamine 0.125 Mg Sl/Oral/Chew SL DIRECTED PRN Ringer's Solution 1,000 mls @ 80 mls/hr 04/10/22 06:00 04/10/22 12:05 IV 05/07/22 23:59 80 mls/hr INFUSION VIGNESH Administration IV Miscellaneous Supplies 1 each 04/10/22 06:00 Iv Access IV 05/07/22 23:59 DIRECTED VIGNESH Ondansetron HCl 4 mg 04/10/22 06:41 Ondansetron 4 Mg/2 Ml Vial IVP Q4H PRN PRN Nausea / Vomiting Sodium Chloride 0 ml 04/10/22 06:00 Normal Saline Flush 10 Ml Syr IV 05/07/22 23:59 PRN PRN Sodium Chloride 0 ml 04/10/22 06:00 Normal Saline 10 Ml Vial IJ 05/07/22 23:59 DIRECTED PRN Sterile Water 0 ml 04/10/22 06:00 Water,Injection,Sterile 10 Ml Vial IJ 05/07/22 23:59 DIRECTED PRN PFSH Active Problems Active Problems: Problem Status Onset Code Constipation K59.00 IBS (irritable bowel syndrome) K58.9 Rectal bleeding K62.5 Medical History Medical History (Updated 04/10/22 @ 11:28 by Tanja Christianson) Abdominal pain Acute bilateral low back pain without sciatica (03/22/16) Allergic rhinitis due to pollen Asthma Asthma (10/29/14) Prednisone taper, addition of inhaled steroid at 30 weeks Chronic pain of right knee Closed fracture of proximal phalanx of toe of left foot (01/31/21) Congenital clinodactyly of left little finger DUB (dysfunctional uterine bleeding) Dysmenorrhea Generalized abdominal pain Genital herpes simplex History of herpes simplex type 2 infection (09/30/14) 10/29/14 counseled to consider prophylaxis during 3rd trimester. Hypercalcemia Iliotibial band syndrome, right leg Internal derangement of right knee IUD surveillance Low back pain Lyme disease Menstrual cycle disorder Menstrual migraine Migraine headache with aura Osteoarthritis of right knee Patellofemoral pain, chronic Pelvic pain PONV (postoperative nausea and vomiting) Pt reports every surgery either VIOLETTA or PONV Recurrent knee instability Routine screening for STI (sexually transmitted infection) TMJ pain dysfunction syndrome Weight gain Surgical History Surgical History section (02/22/12) primary elective c/s (patient concern re prior hx HSV) x2 H/O right knee surgery x3 H/O sinus surgery H/O tubal ligation Tobacco Smoking/Tobacco Use Status: Never Alcohol Alcohol Intake: never Substance Use Substance use: Never Substance use type: does not use Prental History History 2 Para Hx # Term Pregnancies 2 Multiple births Hx # Pregnancies Ectopic pregnancies AB induced Hx Number of Living Children AB spontaneous Vital Signs and Lab Results Vital Signs Most Recent Vital Signs in EMR: Most Recent Vital Signs Temp Pulse Resp BP Pulse Ox 36.7 C 83 16 134/73 95 04/10/22 11:24 04/10/22 11:24 04/10/22 11:24 04/10/22 11:24 04/10/22 11:24 Point of Care Results Point of Care Results: POC- Test(urine) Negative 04/10/22 11:29 Lab Results Blood Type / Crossmatch: No Data to Display Complete Blood Count: No Data to Display Complete Metabolic Panel: No Data to Display Liver Function Panel: No Data to Display Coagulation Panel: No Data to Display Cardiac Panel: No Data to Display Arterial Blood Gas: No Data to Display Venous Blood Gas: No Data to Display Pancreas Panel: No Data to Display Thyroid Panel: Thyroid Stimulating Hormone (TSH) 2.06 uIU/mL (0.36-3.74) 03/16/22 16:08 Infectious Disease: HIV (1&2) Ag and Ab, 4th Generation Negative (Negative) 03/16/22 16:08 Hepatitis B Surface Antigen Negative (Negative) 03/16/22 16:08 Hepatitis C Antibody Negative (Negative) 03/16/22 16:08 Syphilis Serology Negative (Negative) 03/16/22 16:08 Neisseria gonorrhoeae DNA Probe Negative (Negative) 03/16/22 15:34 Blood Cultures: No Data to Display Toxicology Panel: No Data to Display Panel: No Data to Display Anesthesia Assessment and Plan Anesthesia History Personal History: PONV Family History: No Family History of Anesthesia Complications Exercise Tolerance Exercise Tolerance: Metabolic Equivalents>4 Pertinent Negatives Pertinent Negatives: No Symptoms of GERD, No Major Cardiovascular Symptoms or Complaints, No Major Pulmonary Symptoms or Complaints and No History of CVA/TIA Cardiac & Pulmonary Exam Cardiac Exam: Normal S1/S2 Heart Sounds Pulmonary Exam: Clear Bilateral Breath Sounds Implantable Cardiac Device Does patient have a Pacemaker or an ICD?: No Airway Exam Known Difficult Airway: No Mallampati Class: 2 Mouth Opening: Normal (> 3cm) Thyromental Distance: Greater than 3 cm Neck Range of Motion: Full ROM Neck Circumference: Normal Teeth Condition: Normal Dentition ASA Classification ASA Score: ASA 2 Emergency Case?: No NPO Status NPO Status: NPO Clears >2 hours, Solids >8 hours Status Status: Negative HCG Anesthesia Plan Resuscitation Status: Full Code Anesthesia Technique: General Anesthesia Airway Planned: Natural Airway Monitors Used: Standard Monitors
[2022-04-10 12:46] VITALS: BMI 30.5
--- NOTE | 2022-04-10 13:27 | BOWEL_PTH ---
PATIENT: Louann Reyes LOC: [facility] U#:[id number] AGE/SX: 36/F ROOM: RE04/10/[address]: Suzette Heck MD : [id number] BED: DIS: 04/10/2022 SPEC #: [id number] RECD: 04/10/22 18:29 STATUS: KATIE RENova #: [id number] CLAYTON: 04/10/22 13:[address]: Suzette Heck DEPT: Surgical Specimen RECD BY: Verito Charles ENTERED: 04/10/22 18:29 SP TYPE: Bowel OTHR DR: Michele Workman Tissues: 1 - BIOPSY BOWEL 2 - BIOPSY BOWEL Procedures: GROSS AND MICRO LEVEL 4 Comments: [id number]
[2022-04-10 13:45] VITALS: BP 92/61; PULSE 74; RESP 16; TEMP 36.4; O2SAT 97
[2022-04-10] MEDS: Ondansetron 4 MG/2 ML VIAL IVP (14:08)
[2022-04-10 14:32] VITALS: BP 104/66; PULSE 70; RESP 18; TEMP 36.4; O2SAT 96
[2022-04-10] MEDS: Prochlorperazine 5 MG TAB PO (14:44)
--- NOTE | 2022-04-10 14:58 | W.ANESPOSTOP ---
Postoperative Evaluation Date, Time and Location Date Performed: 04/10/22 Time Performed: 14:58 Patient Location: Day Surgery Unit Vital Signs Most Recent Imported Vital Signs: Most Recent Vital Signs Temp Pulse Resp BP Pulse Ox 36.4 C L 70 18 104/66 96 04/10/22 14:32 04/10/22 14:32 04/10/22 14:32 04/10/22 14:32 04/10/22 14:32 Pain Score Most Recent Pain Score: Most Recent Pain Score Pain Level 8 04/10/22 13:45 Assessment Mental Status: Awake (Alert & Oriented to Patient Baseline) Airway and Respiratory Function: Patent airway with normal (patient baseline) respiratory exam Cardiovascular Function: Hemodynamically Stable Hydration Status: Adequately Hydrated Nausea & Vomiting: No Nausea or Vomiting Pain: Pain is tolerable per patient (Migraine present, active history.) Peripheral Nerve Block: Patient did not receive a nerve block
== END 2022-04-10 15:50 | disposition home or self-care (01) ==
PROVIDERS: PCP Nurse Practitioner Family; Visit Provider Surgery
PROC: 0DJD8ZZ Inspection of Lower Intestinal Tract, Via Natural or Artificial Opening Endoscopic (ICD-10-PCS; CPT 45378; principal; 2022-04-10 14:00)
DX: K62.5 Hemorrhage of anus and rectum (principal); K63.5 Polyp of colon
CPT/HCPCS: 45380; 88305; J2405

== ENCOUNTER 2023-07-25 15:20 | Outpatient (CLI) | payer MEDICAID, SELFPAY ==
--- OUTSIDE RECORDS SUMMARY | 2023-07-25 15:22 | XMS_ITS | CCD ---
Author Name Unknown Address [address] [place] [address] [id number] Organization Unknown Address [address] [place] [address] [id number] Care Team Providers Care Superintendent Name Role Phone INGRID MACHUCA Attending Physician [phone] INGRID MACHUCA Rounding (Secondary) Physician [phone] Vital Signs Unknown or Not Available. Allergies Unknown or Not Available. Procedures Unknown or Not Available. History of Immunizations Unknown or Not Available. Problems Unknown or Not Available. Results Unknown or Not Available. Active Medications Unknown or Not Available. Medications Administered During Visit Unknown or Not Available. Encounters Encounter Diagnosis Diagnosis Code Start Date Pain in right knee [id number] 08/01/2021 Social History Smoking Status Code Start Date End Date Never smoker [id number] Patient Decision Aids Unknown or Not Available. Discharge Instructions You were admitted to [facility] on 08/01/2021 09:29 with a principal diagnosis of Pain in right knee You were discharged from [facility] on 08/01/2021 00:00 Should you have any questions prior to discharge, please contact a member of your healthcare team. If you have left the hospital and have any questions, please contact your primary care physician. Chief Complaint and Reason For Visit Unknown or Not Available. Function Status Unknown or Not Available. Plan of Care Unknown or Not Available. Referral/Transition of Care Unknown or Not Available.
--- OUTSIDE RECORDS SUMMARY | 2023-07-25 15:25 | XMS_ITS | Continuity of Care Document ---
Author Name Unknown Organization [facility] Address [address] [place] [address] Care Team Providers Care Automotive Consultant Name Role Phone Michele Workman Primary Care Physician Encounter [facility] Date(s): 06/12/22 - 06/12/22 [facility] [address] [place] [address] Discharge Disposition: Home or Self Care Attending Physician: Michele Workman NP Admitting Physician: Michele Workman NP Referring Physician: Michele Workman CAMERA TUNING ENGINEER Allergies, Adverse Reactions, Alerts Substance Reaction Severity Status doxycycline Unknown Active penicillin G sodium Tumefaction Severe Active sulfa drugs Skin rash Severe Active Clavulanic acid Unknown Active Assessment and Plan Diagnostic Tests Pending * Chlamydia/N. gonorrhoeae Amp RNA [facility] 06/12/22 * Hepatitis C Ab w/Rflx to HCV RNA PCR [facility] 06/12/22 * HIV 1/2 Ag and Ab, 4th Generation [facility] 06/12/22 * Hepatitis B Surface Antigen [facility] 06/12/22 * Syphilis Serology [facility] 06/12/22 Immunizations Given and Recorded Vaccine Date Status Refusal Reason SARS-CoV-2 (COVID-19) Ad26 vaccine 10/31/20 Record ed hepatitis B adult vaccine 09/14/10 Recorded hepatitis B adult vaccine 05/18/10 Recorded hepatitis B adult vaccine 04/12/10 Recorded influenza virus vaccine, inactivated 07/13/10 Donavan rded tetanus/diphth/pertuss (Tdap) adult/adol 08/20/09 Recorded Medications clindamycin 300 mg oral capsule 300 mg = 1 cap, Oral, every 6 hr, # 56 cap, 0 Refill(s), Pharmacy: [id number] Start Date: 04/21/22 Stop Date: 05/05/22 Status: Ordered Cortisporin-TC otic suspension 4 drops, Ear-Both, QID, # 10 mL, 0 Refill(s), Pharmacy: [id number] Start Date: 04/21/22 Stop Date: 05/01/22 Status: Ordered Social History Social History Type Response Tobacco Never tobacco user T obacco Use:. Sex Female Patient Care team information Personnel Name: Michele Workman NP Address: Address: [address]
--- OUTSIDE RECORDS SUMMARY | 2023-07-25 15:25 | XMS_ITS | Patient Health Record ---
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 Name Role Phone PRADEEP MONTES Unavailable [phone] ALLERGIES Allergen (clinical drug ingredient) Drug/Non Drug Allergy documented on EMR Reaction Allergy Type Onset Date Status doxycycline Doxycycline Unknown Drug Allergy Act db Penicillin Unknown Drug Allergy Active Substance with sulfonamide structure and antibacterial mechanism of action (substance) Sulfa Antibiotics Unknown Drug Allergy Active RESULTS Component Value Reference Range Notes -PPD Reviewed date:02/10/2023 11:48:28 AM Interpretation:Negative Performing Lab: Notes/Report: -Drug Screen Reviewed date:02/07/2023 02:26:02 PM Interpretation: Performing Lab: Notes/Report: REASON FOR REFERRAL No Information MEDICATIONS Medication SIG (Take, Route, Frequency, Duration) Notes Start Date End Date Status ZyrTEC Allergy 10 MG 1 tablet Orally Once a day Active Albuterol Sulfate HFA 108 (90 Base) MCG/ACT 2 puffs Inhalation every 4 hours as needed. Substitute insurance approved brand if necessary Active Advair Diskus 100-50 MCG/ACT 1 puff Inhalation Twice a day Active IMMUNIZATIONS Vaccine Route Administration Date Status Comme nts Covid-19 [employer]enez [employer]enez Dose 1 Unknown 10/31/2020 Ad ministered Covid-19 Moderna Unknown 08/09/2021 Administered Hep B, adult dosage, for intramuscular use Unknown 04/12/2010 Administered Hep B, adult dosage, for intramuscular use Unknown 05/18/2010 Administered Hep B, adult dosage, for intramuscular use Unknown 09/14/2010 Administered MMR Unknown 01/23/2015 Administered Tdap Unknown 01/07/2015 Administered SOCIAL HISTORY Sex Assigned At : Social History Observation Description Sex Assigned At Unknown VITAL SIGNS Heart Rate 76 /min 02/07/2023 passed color bl ind test Blood pressure diastolic 76 mmHg 02/07/2023 pas sed color blind test Weight-kg 73.03 kg 02/07/2023 passed color bl ind test Height 62 in 02/07/2023 passed color bl ind test Blood pressure systolic 124 mmHg 02/07/2023 pass ed color blind test Weight 161 lbs 02/07/2023 passed color bl ind test BMI 29.44 02/07/2023 passed color bl ind test Encounters Encounter Location Date Provider Diagnosis [facility] [address] [place] [id number] 02/07/2023 PRADEEP MONTES Pre-employment examination Z02.1 ; Pre-employment drug testing Z02.1 and Screening for tuberculosis Z11.1 ASSESSMENTS Encounter Date Diagnosis Assessment Notes Treatment Notes Treatment Clinical Notes 02/07/2023 Pre-employment examination (ICD-10 - Z02.1) No accomodations will be needed to allow this patient to work in the proposed position. 02/07/2023 Pre-employment drug testing (ICD-10 - Z02.1) 02/07/2023 Screening for tuberculosis (ICD-10 - Z11.1) PLAN OF TREATMENT No Information Insurance Providers Payer Name Payer Address Payer Phone Subscriber Number Group Number Insured Name Patient Relationship to Insured Coverage Start Date Coverage End Date [facility] [facility] Attn Mil [address] [place] [address] Louann Reyes Self - patient is the insured MEDICAL (GENERAL) HISTORY Medical History History ICD Code asthma
--- OUTSIDE RECORDS SUMMARY | 2023-07-25 15:25 | XMS_ITS | Continuity of Care Document ---
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 Name Role Phone Michele Workman Esther Primary Care Physician [facility] 10[facility] - 10/06/22 [facility] [address] [place] [address] Encounter Diagnosis Acute asthma exacerbation(Discharge Diagnosis) - 10/06/22 Upper respiratory infection(Discharge Diagnosis) - 10/06/22 Discharge Disposition: Home or Self Care Attending Physician: Delia Moreno MD Admitting Physician: Delia Moreno MD Allergies, Adverse Reactions, Alerts Substance Reaction Severity Status doxycycline Unknown Active azithromycin Swelling of hand Moderate Active penicillin G sodium Tumefaction Severe Active sulfa drugs Skin rash Severe Active Clavulanic acid Unknown Active Functional Status 10/06/22 Other exposure to Infectious Disease Non e Immunizations Given and Recorded Vaccine Date Status Refusal Reason SARS-CoV-2 (COVID-19) Ad26 vaccine 10/31/20 Record ed hepatitis B adult vaccine 09/14/10 Recorded hepatitis B adult vaccine 05/18/10 Recorded hepatitis B adult vaccine 04/12/10 Recorded influenza virus vaccine, inactivated 07/13/10 Donavan rded tetanus/diphth/pertuss (Tdap) adult/adol 08/20/09 Recorded Medications !-DuoNeb 0.5 mg-2.5 mg/3 mL inhalation solution 3 mL, NEB, QID, PRN as needed for shortness of breath or wheezing, # 30 EA, 0 Refill(s), Pharmacy: [id number], 154, cm, 10/06/22 10:29:00 EST, Height/Length Dosing, 74, kg, 10/06/22 10:29:00 EST, Weight Dosing Start Date: 10/06/22 Status: Ordered albuterol 2.5 mg/3 mL (0.083%) inhalation solution 2.5 mg = 3 mL, NEB, every 6 hr, PRN as needed for wheezing, # 100 EA, 1 Refill(s), Pharmacy: [place] [id number] Start Date: 09/19/22 Status: Ordered Cortisporin-TC otic suspension 4 drops, Ear-Both, QID, # 10 mL, 0 Refill(s), Pharmacy: [place] [id number] Start Date: 04/21/22 Stop Date: 05/01/22 Status: Ordered predniSONE 10 mg oral tablet 20 mg = 2 tab, Oral, Daily, Take this medication on days 6 and 7 after taking the 40 mg dose for the first 5 days., # 4 tab, 0 Refill(s), Pharmacy: [place] [id number], 154, cm, 10/06/22 10:29:00 EST, Height/Length Dosing, 74, kg, 10/06/22 10:29:00... Start Date: 10/06/22 Stop Date: 10/08/22 Status: Ordered predniSONE 20 mg oral tablet 40 mg = 2 tab, Oral, Daily, # 10 tab, 0 Refill(s), Pharmacy: [place] [id number], 154, cm, 10/06/22 10:29:00 EST, Height/Length Dosing, 74, kg, 10/06/22 10:29:00 EST, Weight Dosing Start Date: 10/06/22 Stop Date: 10/11/22 Status: Ordered Robitussin Maximum Strength Severe Cough Plus Sore Throat 650 mg-20 mg/20 mL oral liquid 20 mL, Oral, every 6 hr, # 400 mL, 0 Refill(s), Pharmacy: [place] [id number], 154, cm, 10/06/22 10:29:00 EST, Height/Length Dosing, 74, kg, 10/06/22 10:29:00 EST, Weight Dosing Start Date: 10/06/22 Stop Date: 10/11/22 Status: Ordered Tessalon Perles 100 mg oral capsule 100 mg = 1 cap, Oral, TID, PRN as needed for cough, # 21 cap, 0 Refill(s), Pharmacy: [id number], 154, cm, 10/06/22 10:29:00 EST, Height/Length Dosing, 74, kg, 10/06/22 10:29:00 EST, WeightDosing Start Date: 10/06/22 Stop Date: 10/13/22 Status: Ordered Valtrex 0 Refill(s) Start Date: 10/06/22 Status: Ordered Ventolin HFA 90 mcg/inh inhalation aerosol 2 puffs, Inhale, every 6 hr, PRN as needed for wheezing, generic equivilent ok, # 8 g, 1 Refill(s),Pharmacy: [id number] Start Date: 09/19/22 Status: Ordered ZyrTEC 0 Refill(s) Start Date: 10/06/22 Status: Ordered Results Laboratory List Name Date D-Dimer 10/06/22 CBC w/ Diff 10/06/22 Comprehensive Metabolic Panel (CMP) 10/06 Magnesium Level 10/06/22 SARS-CoV-2 (COVID-19)/Flu/RSV (GeneXpert ) (COVID-19/Flu/RSV (GeneXpert)) 10/06/22 Troponin-I 10/06/22 Beta hCG Quantitative 10/06/22 Automated Diff 10/06/22 Most recent to oldest [Reference Range]: 1 WBC [5.0-10.0 x10^3/mcL] 6.0 x10^3/mcL (10/06/22 10:50 AM) RBC [4.1-5.3 x10^6/mcL] 4.4 x10^6/mcL (10/06/22 10:50 AM) Neutro Auto [40.0-75.0 %] 58.2 % (10/06/22 10:50 AM) Lymph Auto [20.0-50.0 %] 30.4 % (10/06/22 10:50 AM) [place] Auto [2.0-15.0 %] 8.1 % (10/06/22 10:50 AM) Basophil Auto [0.0-1.0 %] 0.7 % (10/06/22 10:50 AM) BUN [7-18 mg/dL] 6 mg/dL *LOW* (10/06/22 10:50 AM) Glucose Level [74-106 mg/dL] 107 mg/dL *HI* (10/06/22 10:50 AM) Potassium Level [3.5-5.1 mmol/L] 3.3 mmo l/L *LOW* (10/06/22 10:50 AM) MCV [80.0-96.0] 90.6 (10/06/22 10:50 AM) AST [15-37 unit/L] 18 unit/L (10/06/22 10:50 AM) ALT [14-59 unit/L] 39 unit/L (10/06/22 10:50 AM) MCHC [31.0-35.0 g/dL] 33.5 g/dL (10/06/22 10:50 AM) Troponin-I [0.0-51.4 pg/mL] <5.0 pg/mL (10/06/22 10:50 AM) Sodium Level [136-145 mmol/L] 141 mmol/L (10/06/22 10:50 AM) Hct [37.0-47.0 %] 39.7 % (10/06/22 10:50 AM) Calcium Level [8.5-10.1 mg/dL] 9.0 mg/dL (10/06/22 10:50 AM) Albumin Level [3.4-5.0 g/dL] 4.0 g/dL (10/06/22 10:50 AM) Protein Total [6.4-8.2 g/dL] 7.2 g/dL (10/06/22 10:50 AM) MCH [26.0-32.0 pg] 30.4 pg (10/06/22 10:50 AM) Magnesium Level [1.8-2.4 mg/dL] 1.8 mg/d L (10/06/22 10:50 AM) Neutro Absolute 3.5 x10^3/mcL *NA* (10/06/22 10:50 AM) Bilirubin Total [0.2-1.0 mg/dL] 0.5 mg/d L (10/06/22 10:50 AM) Hgb [12.0-16.0 g/dL] 13.3 g/dL (10/06/22 10:50 AM) Alk Phos [46-146 unit/L] 70 unit/L (10/06/22 10:50 AM) Platelets [130-450 x10^3/mcL] 338 x10^3/ mcL (10/06/22 10:50 AM) CO2 [21-32 mmol/L] 28 mmol/L (10/06/22 10:50 AM) eGFR Non-AA [>=60] 94 (10/06/22 10:50 AM) eGFR AA [>=60] 94 (10/06/22 10:50 AM) Chloride Level [98-107 mmol/L] 104 mmol/ L (10/06/22 10:50 AM) RDW-CV [11.7-17.0 %] 12.3 % (10/06/22 10:50 AM) Imm Gran Auto [0.0-0.9 %] 0.3 % (10/06/22 10:50 AM) Creatinine Level [0.55-1.02 mg/dL] 0.82 mg/dL (10/06/22 10:50 AM) 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 Unknown *NA* (10/06/22 10:50 AM) Hospitalized due to COVID-19? Unknown *NA* (10/06/22 10:50 AM) In ICU? Unknown *NA* (10/06/22 10:50 AM) Group care resident? Unknown *NA* (10/06/22 10:50 AM) status? Unknown *NA* (10/06/22 10:50 AM) SARS-CoV-2(Covid19)PCR(GXpert COVFLURSV) [Negative] Negative (10/06/22 10:50 AM) Flu A (GXpert COVFLURSV) [Negative] Nega tive (10/06/22 10:50 AM) RSV (GXpert COVFLURSV) [Negative] Negati ve (10/06/22 10:50 AM) Flu B (GXpert COVFLURSV) [Negative] Nega tive (10/06/22 10:50 AM) D Dimer, (Quant.) [0.00-0.50 mg/L] 0.45 mg/L (10/06/22 1:05 PM) Eos, Auto [1.0-6.0 %] 2.3 % (10/06/22 10:50 AM) Beta hCG Qnt [1-6 mIntlUnit/mL] 1 mIntlU nit/mL (10/06/22 10:45 AM) Vital Signs Most recent to oldest [Reference Range]: 1 2 3 Temperature Temporal Artery [36-38 Deg C] 36.7 Deg C (10/06/22 10:21 AM) Peripheral Pulse Rate [60-100 bpm] 117 bpm *HI* (10/06/22 2:29 PM) 115 bpm *HI* (10/06/22 1:33 PM) 112 bpm *HI* (10/06/22 12:00 PM) Heart Rate Monitored [60-100 bpm] 110 bpm *HI* (10/06/22 12:20 PM) Respiratory Rate [12-24 br/min] 22 br/min (10/06/22 2:29 PM) 22 br/min (10/06/22 1:33 PM) 20 br/min (10/06/22 12:20 PM) Blood Pressure [90-140/60-90 mmHg] 126/67mmHg (10/06/22 1:00 PM) 122/63mmHg (10/06/22 12:00 PM) 106/81mmHg (10/06/22 10:21 AM) Weight 74.00 kg (10/06/22 10:21 AM) Weight Dosing 74.00 kg (10/06/22 10:29 AM) Height 154.000 cm (10/06/22 10:21 AM) Height/Length Dosing 154.000 cm (10/06/22 10:29 AM) Body Mass Index 31.000 kg/m2 (10/06/22 10:21 AM) Social History Social History Type Response Tobacco Never tobacco user T obacco Use:. Sex Female Hospital Discharge Instructions Patient Education 10/06/2022 13:50:35 Asthma Attack Asthma Attack Asthma attack, also called acute bronchospasm, is the sudden narrowing and tightening of the air passages, which limits the amount of oxygen that can get into the lungs. The narrowing is caused by inflammation and tightening of the muscles in the air tubes (bronchi) in the lungs. Too much mucus is also produced, which narrows the airways more. This can cause trouble breathing, loud breathing (wheezing), and coughing. The goal of treatment is to open the airways in the lungs and reduce inflammation. What are the causes? Possible causes or triggers of this condition include: ??? Animal dander, dust mites, or cockroaches. ??? Mold, pollen from trees or grass, or cold air. ??? Air pollutants such as dust, household it help desk manager, aerosol sprays, strong chemicals, strong odors, and smoke of any kind. ??? Stress or strong emotions such as crying or laughing hard. ??? Exercise or activity that requires a lot of energy. ??? Substances in foods and drinks, such as dried fruits and wine, called sulfites. ??? Certain medicines or medical conditions such as: ??? Aspirin or beta-blockers. ??? Infections or inflammatory conditions, such as a flu (influenza), a cold, pneumonia, or inflammation of the nasal membranes (rhinitis). ??? Gastroesophageal reflux disease (GERD). GERD is a condition in which stomach acid backs up intoyour esophagus and spills into your trachea (windpipe), which can irritate your airways. What are the signs or symptoms? Symptoms of this condition include: ??? Wheezing. This may sound like whistling while breathing. This may only happen at night. ??? Excessive coughing. This may only happen at night. ??? Chest tightness or pain. ??? Shortness of breath. ??? Feeling like you cannot get enough air no matter how hard you breathe (air hunger). How is this diagnosed? This condition may be diagnosed based on: ??? Your medical history. ??? Your symptoms. ??? A physical exam. ??? Tests to check for other causes of your symptoms or other conditions that may have triggered your asthma attack. These tests may include: ??? A chest X-ray. ??? Blood tests. ??? Tests to assess lung function, such as breathing into a device that measures how much air you can inhale and exhale (spirometry). How is this treated? Treatment for this condition depends on the severity and cause of your asthma attack. ??? For mild attacks, you may receive medicines through a hand-held inhaler (metered dose inhaler, or MDI) or through a device that turns liquid medicine into a mist (nebulizer). These medicines include: ??? Quick relief or rescue medicines that quickly relax the airways and lungs. ??? Long-acting medicines that are used daily to prevent (control) your asthma symptoms. ??? For moderate or severe attacks, you may be treated with steroid medicines by mouth or through an IV injection at the hospital. ??? For severe attacks, you may need oxygen therapy or a breathing machine (ventilator). ??? If your asthma attack was caused by an infection from bacteria, you will be given antibiotic medicines. Follow these instructions at home: Medicines ??? Take [id number] and prescription medicines only as told by your health care provider. ??? Keep your medicines up-to-date. ??? Make sure you have all of your medicines available at all times. ??? If you were prescribed an antibiotic medicine, take it as told by your health care provider. Donot stop taking the antibiotic even if you start to feel better. ??? Tell your doctor if you may be to make sure your asthma medicine is safe to use duringpregnancy. Avoiding triggers ??? Keep track of things that trigger your asthma attacks. Avoid exposure to these triggers. ??? Do not use any products that contain nicotine or tobacco, such as cigarettes, e-cigarettes, andchewing tobacco. If you need help quitting, ask your health care provider. ??? When there is a lot of pollen, air pollution, or humidity, keep windows closed and use an air conditioner or go to places with air conditioning. Asthma action plan ??? Work with your health care provider to make a written plan for managing and treating your asthma attacks (asthma action plan). This plan should include: ??? A list of your asthma triggers and how to avoid them. ??? A list of symptoms that you may have during an asthma attack. ??? Information about which medicine to take, when to take the medicine and how much of the medicine to take. ??? Information to help you understand your peak flow measurements. ??? Daily actions that you can take to control your asthma symptoms. ??? Contact information for your health care providers. ??? If you have an asthma attack, act quickly. Follow the emergency steps on your written asthma action plan. This may prevent you from needing to go to the hospital. General instructions ??? Avoid excessive exercise or activity until your asthma attack goes away. Ask your health care provider what activities are safe for you and when you can return to your normal activities. ??? Stay up to date on all your vaccines, such as flu and pneumonia vaccines. ??? Drink enough fluid to keep your urine pale yellow. Staying hydrated helps keep mucus in your lungs thin so it can be coughed up easily. ??? Do not use alcohol until you have recovered. ??? Keep all follow-up visits as told by your health care provider. This is important. Asthma requires careful medical care. Contact a health care provider if: ??? You have followed your action plan for 1 hour and your peak flow reading is still at 50???79%. This is in the yellow zone, which means caution. ??? You need to use your quick reliever medicine more frequently than normal. ??? Your medicines are causing side effects, such as rash, itching, swelling, or trouble breathing. ??? Your symptoms do not improve after 48 hours. ??? You cough up mucus that is thicker than usual. ??? You have a fever. Get help right away if: ??? Your peak flow reading is less than 50% of your personal best. This is in the red zone, which means danger. ??? You have trouble breathing. ??? You develop chest pain or discomfort. ??? Your medicines no longer seem to be helping. ??? You are coughing up bloody mucus. ??? You have a fever and your symptoms suddenly get worse. ??? You have trouble swallowing. ??? You feel very tired, and breathing becomes tiring. These symptoms may represent a serious problem that is an emergency. Do not wait to see if the symptoms will go away. Get medical help right away. Call your local emergency services (911 in the [place] Do not drive yourself to the hospital. Summary ??? Asthma attacks are caused by narrowing or tightness in air passages, which causes shortness of breath, coughing, and loud breathing (wheezing). ??? Many things can trigger an asthma attack, such as allergens, weather changes, exercise, strong odors, and smoke of any kind. ??? If you have an asthma attack, act quickly. Follow the emergency steps on your written asthma action plan. ??? Get help right away if you have severe trouble breathing, chest pain, or fever, or if your homemedicines are no longer helping with your symptoms. This information is not intended to replace advice given to you by your health care provider. Make sure you discuss any questions you have with your health care provider. Document Revised: 08/03/2020 Document Reviewed: 08/03/2020 [employer] Patient Education ?? 2021 [employer]. 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 No relief. X1 lidocaine neb given with some relief in coughing. Electronically Signed on 10/06/22 05:46 PM Sana Jo Physician Emergency department Note * Mahesh Garcia MD: PERFORM Event Display: ED Note Physician Authored Date: [id number] JIMMY BRUNO Kia :1985 Age:37 years Sex:Female Visit Date:10/06/2022 Primary Care Physician: [facility] NP Basic Information Time Seen: Mahesh Garcia MD / 10/06/2022 10:34 Chief Complaint Finished course of clindacmycin 2 days ago sinus/ear infection. COVID + a couple weeks ago per pt. Pt states her asthma is bothering her. C/o SOB, home inhaler and neb tx not effective. Pt with persistent cough in triage. Reproducable mid chest pain History Of Present Illness: 37-year-old female past medical history??asthma??presents with??dyspnea, cough. ??She states that she had COVID recently but has largely recovered from this a couple weeks ago, she was feeling okay yesterday but then this morning she woke up and had a persistent cough and some substernal chest pain??tried a nebulizer and albuterol at home which was ineffective and usually this does help this type of chest tightness but her chest pain??is substernal and has been getting worse and persistent nonreproducible pain nothing seems to make it better or worse. ??She has some shortness of breath with this and cannot seem to stop coughing.?? No nausea vomiting fevers productiveness to the cough abdominal pain leg swelling or any other symptoms. Review of Systems: dyspnea, cough Physical Exam Vitals & Measurements T:??36.7?C ??(Temporal Artery)?? HR:??117??(Peripheral)?? RR:??22?? BP:??126/67?? SpO2:??99%?? HT:??154.000??cm?? WT:??74.00??kg?? BMI:??31.000?? Pain Score:??8?? O2 Therapy:??Room air?? General: Alert and oriented, well nourished,?No??acute distress Eye: PERRL, EOMI,?Normal??conjunctiva HENT: Normocephalic, Lungs: Clear to auscultation and percussion,?Non-labored?? respiration, persistent cough Heart:?Normal?? rate,?Regular??rhythm,?No??murmur,?No??gallop,?No??edema Abdomen: Soft, non-tender, non-distended Musculoskeletal:?Normal?? range of motion and strength,?No??tenderness,?No??swelling Neurologic: Awake, alert and oriented X4, CN II-XII intact Psychiatric: Cooperative, appropriate mood and affect Medical Decision Makin-year-old female presents with??persistent cough, dyspnea, chest pain starting this morning. ??Recent COVID infection but states she has largely recovered from this. ??36.7, 106/81, 105, 16, 100%.?? Patient is clear to auscultation bilaterally. ??No acute respiratory distress. ?? EKG rate 83 sinus normal axis and intervals no ST segment elevations or depressions. ?? No leukocytosis, hemoglobin is normal. ??Patient is low risk for??pulmonary embolism, given tachycardia a D-dimer was performed and this was normal.?? Troponin is less than 5. ?? negative. ??Flu COVID RSV negative. ??Chest x-ray unremarkable.?? At this time given the clinical presentation this is most??consistent with??an asthma exacerbation. ??She states that??during her asthma exacerbation she does not wheeze significantly but ends up coughing quite a bit. ??She was given DuoNebs x3 and did have improvement in her symptoms but then she got up and walked around and had some resumption of her symptoms.?? She was given prednisone orally here in the ER.?? Also given a liter of IV fluids for her tachycardia likely exacerbated by DuoNebs, ultimately this??did decrease into the [id number].?? She was given??guaifenesin and Tessalon Perles for cough, was still having??a persistent cough??after this.?? Presentation is not overly consistent with??an acute cardiac presentation, I do not feel that this is ACS at this time. ??Bedside ultrasound did not show pericardial effusion. ??Shestill having??some chest tightness??but given that it was relieved by DuoNebs earlier I still feel that this is an acute asthma exacerbation.?? She was given medications for home including prednisone, DuoNeb solution,??Tessalon Perles, Robitussin.?? Given return precautions ED. ??Discharged in stable condition with primary follow-up. Procedure No Qualifying Data Assessment/Plan 1.??Acute asthma exacerbation??J45.901 Ordered: Robitussin Maximum Strength Severe Cough Plus Sore Throat 650 mg-20 mg/20 mL oral liquid, 20 mL, Oral, every 6 hr, # 400 mL, 0 Refill(s), Pharmacy: [id number], 154, cm, 10/06/22 10:29:00 EST, Height/Length Dosing, 74, kg, 10/06/22 10:29:00 EST, Weight Dosing Tessalon Perles 100 mg oral capsule, 100 mg = 1 cap, Oral, TID, PRN as needed for cough, # 21 cap, 0 Refill(s), Pharmacy: [id number], 154, cm, 10/06/22 10:29:00 EST, Height/Length Dosing, 74, kg, 10/06/22 10:29:00 EST, Weight Dosing !-DuoNeb 0.5 mg-2.5 mg/3 mL inhalation solution, 3 mL, NEB, QID, PRN as needed for shortness of breath or wheezing, # 30 EA, 0 Refill(s), Pharmacy: [place] [id number], 154, cm, 10/06/22 10:29:00 EST, Height/Length Dosing, 74, kg, 10/06/22 10:29:00 EST, Weight Dosing predniSONE 20 mg oral tablet, 40 mg = 2 tab, Oral, Daily, # 10 tab, 0 Refill(s), Pharmacy: [place] [id number], 154, cm, 10/06/22 10:29:00 EST, Height/Length Dosing, 74, kg, 10/06/22 10:29:00 EST, Weight Dosing predniSONE 10 mg oral tablet, 20 mg = 2 tab, Oral, Daily, Take this medication on days 6 and 7 after taking the 40 mg dose for the first 5 days., # 4 tab, 0 Refill(s), Pharmacy: [place] [id number], 154, cm, 10/06/22 10:29:00 EST, Height/Length Dosing, 74, kg, 10/06/22 10:29:00... Discharge Patient, 10/06/22 14:47:00 EST, Home Independently, Constant Indicator ?? 2.??Upper respiratory infection??J06.9 Ordered: Robitussin Maximum Strength Severe Cough Plus Sore Throat 650 mg-20 mg/20 mL oral liquid, 20 mL, Oral, every 6 hr, # 400 mL, 0 Refill(s), Pharmacy: [place] [id number], 154, cm, 10/06/22 10:29:00 EST, Height/Length Dosing, 74, kg, 10/06/22 10:29:00 EST, Weight Dosing Tessalon Perles 100 mg oral capsule, 100 mg = 1 cap, Oral, TID, PRN as needed for cough, # 21 cap, 0 Refill(s), Pharmacy: [id number], 154, cm, 10/06/22 10:29:00 EST, Height/Length Dosing, 74, kg, 10/06/22 10:29:00 EST, Weight Dosing !-DuoNeb 0.5 mg-2.5 mg/3 mL inhalation solution, 3 mL, NEB, QID, PRN as needed for shortness of breath or wheezing, # 30 EA, 0 Refill(s), Pharmacy: [id number], 154, cm, 10/06/22 10:29:00 EST, Height/Length Dosing, 74, kg, 10/06/22 10:29:00 EST, Weight Dosing predniSONE 20 mg oral tablet, 40 mg = 2 tab, Oral, Daily, # 10 tab, 0 Refill(s), Pharmacy: [id number], 154, cm, 10/06/22 10:29:00 EST, Height/Length Dosing, 74, kg, 10/06/22 10:29:00 EST, Weight Dosing predniSONE 10 mg oral tablet, 20 mg = 2 tab, Oral, Daily, Take this medication on days 6 and 7 after taking the 40 mg dose for the first 5 days., # 4 tab, 0 Refill(s), Pharmacy: [id number], 154, cm, 10/06/22 10:29:00 EST, Height/Length Dosing, 74, kg, 10/06/22 10:29:00... Discharge Patient, 10/06/22 14:47:00 EST, Home Independently, Constant Indicator ?? Orders: CV EKG ED, 10/06/22 10:42:00 EST, Stat, Reason: ED - empiric, Stop date and time 10/06/22 10:42:00 EST, ORD_SET_REQ_DT_RANGE, Estephanie's Internal Person Id Patient Education Asthma Attack Follow Up With When Contact Information Michele Workman NP Within [address] [address]- Additional Instructions: Medication Reconciliation New Prescription acetaminophen-dextromethorphan (Robitussin Maximum Strength Severe Cough Plus Sore Throat 650 mg-20mg/20 mL oral liquid)20 [place]ilit[place] Oral (given by mouth) every 6 hours for 5 Days. Refills: 0. ?? benzonatate (Tessalon Perles 100 mg oral capsule)1 Capsules Oral (given by mouth) 3 times a day as needed as needed for cough for 7 Days. Refills: 0. ?? ipratropium-albuterol (!-DuoNeb 0.5 mg-2.5 mg/3 mL inhalation solution)3 [place]ilit[place] Nebulized inhalation (inhale using nebulizer) 4 times a day as needed as needed for shortness of breath or wheezing. Refills: 0. ?? predniSONE (predniSONE 10 mg oral tablet)2 tab Oral (given by mouth) every day for 2 Days. Take this medication on days 6 and 7 after taking the 40 mg dose for the first 5 days.. Refills: 0. ?? predniSONE (predniSONE 20 mg oral tablet)2 tab Oral (given by mouth) every day for 5 Days. Refills:0. ?? Unchanged albuterol (albuterol 2.5 mg/3 mL (0.083%) inhalation solution)3 [place]iliters Nebulized inhalation (inhale using nebulizer) every 6 hours as needed as needed for wheezing. Refills: 1. ?? albuterol (Ventolin HFA 90 mcg/inh inhalation aerosol)2 Puffs Inhale (breathe in) every 6 hours as needed as needed for wheezing. generic equivilent ok. Refills: 1. ?? cetirizine (ZyrTEC) ?? colistin/neomycin/thonzonium/HC otic (Cortisporin-TC otic suspension)4 Drops Both ears 4 times a day for 10 Days. Refills: 0. ?? valACYclovir (Valtrex) Problem List/Past Medical History Ongoing No qualifying data Historical No qualifying data Medication Administration Given !-DuoNeb, 3 mL, Inhale !-DuoNeb, 3 mL, Inhale !-DuoNeb, 3 mL, Inhale !-Robitussin, 400 mg, Oral lidocaine 2% injectable solution, 5 mL, NEB NS bolus, 1000 mL, IV Piggyback predniSONE, 40 mg, Oral Tessalon Perles, 200 mg, Oral Toradol, 15 mg, IV Push Allergies penicillin G sodium??(Tumefaction) sulfa drugs??(Skin rash) azithromycin??(Swelling of hand) Clavulanic acid doxycycline Social History Alcohol Current, 1-2 times per year Electronic Cigarette/Vaping Electronic Cigarette Use: Never. Employment/School Employed Home/Environment Lives with Alone. Nutrition/Health Diet restrictions: gluten and dairy free. Substance Use Never Tobacco Never tobacco user Tobacco Use:. Lab Results CBC and Differential?? LATEST RESULTS?? HISTORICAL RESULTS?? WBC?? 10/06/22 10:50?? 6.0?? 04/21/22?? 6.4?? RBC?? 10/06/22 10:50?? 4.4?? 04/21/22?? 4.6?? Hgb?? 10/06/22 10:50?? 13.3?? 04/21/22?? 14.5?? Hct?? 10/06/22 10:50?? 39.7?? 04/21/22?? 42.4?? MCV?? 10/06/22 10:50?? 90.6?? 04/21/22?? 91.8?? MCH?? 10/06/22 10:50?? 30.4?? 04/21/22?? 31.4?? MCHC?? 10/06/22 10:50?? 33.5?? 04/21/22?? 34.2?? RDW-CV?? 10/06/22 10:50?? 12.3?? 04/21/22?? 12.5?? Platelets?? 10/06/22 10:50?? 338?? 04/21/22?? 347?? Neutro Auto?? 10/06/22 10:50?? 58.2?? 04/21/22?? 52.9?? Lymph Auto?? 10/06/22 10:50?? 30.4?? 04/21/22?? 35.7?? [place] Auto?? 10/06/22 10:50?? 8.1?? 04/21/22?? 7.5?? Eos, Auto?? 10/06/22 10:50?? 2.3?? 04/21/22?? 3.0?? Basophil Auto?? 10/06/22 10:50?? 0.7?? 04/21/22?? 0.6?? Imm Gran Auto?? 10/06/22 10:50?? 0.3?? 04/21/22?? 0.3?? Neutro Absolute?? 10/06/22 10:50?? 3.5?? 04/21/22?? 3.4? Coagulation?? LATEST RESULTS?? D Dimer, (Quant.)?? 10/06/22 13:05?? 0.45? Routine Chemistry?? LATEST RESULTS?? Sodium Level?? 10/06/22 10:50?? 141?? Potassium Level?? 10/06/22 10:50?? 3.3 ??Low?? Chloride Level?? 10/06/22 10:50?? 104?? CO2?? 10/06/22 10:50?? 28?? Alk Phos?? 10/06/22 10:50?? 70?? AST?? 10/06/22 10:50?? 18?? ALT?? 10/06/22 10:50?? 39?? BUN?? 10/06/22 10:50?? 6 ??Low?? Glucose Level?? 10/06/22 10:50?? 107 ??High?? Creatinine Level?? 10/06/22 10:50?? 0.82?? eGFR AA?? 10/06/22 10:50?? 94?? eGFR Non-AA?? 10/06/22 10:50?? 94?? Calcium Level?? 10/06/22 10:50?? 9.0?? Protein Total?? 10/06/22 10:50?? 7.2?? Albumin Level?? 10/06/22 10:50?? 4.0?? Bilirubin Total?? 10/06/22 10:50?? 0.5?? Magnesium Level?? 10/06/22 10:50?? 1.8? Cardiac Isoenzymes?? LATEST RESULTS?? Troponin-I?? 10/06/22 10:50?? <5.0? Testing?? LATEST RESULTS?? Beta hCG Qnt?? 10/06/22 10:45?? 1? Infectious Disease?? LATEST RESULTS?? Employed in healthcare??? 10/06/22 10:50?? Unknown?? Symptomatic as defined by CDC??? 10/06/22 10:50?? Unknown?? Hospitalized due to COVID-19??? 10/06/22 10:50?? Unknown?? In ICU??? 10/06/22 10:50?? Unknown?? Group care resident??? 10/06/22 10:50?? Unknown?? status??? 10/06/22 10:50?? Unknown?? SARS-CoV-2(Covid19)PCR(GXpert COVFLURSV)?? 10/06/22 10:50?? Negative?? Flu A (GXpert COVFLURSV)?? 10/06/22 10:50?? Negative?? Flu B (GXpert COVFLURSV)?? 10/06/22 10:50?? Negative?? RSV (GXpert COVFLURSV)?? 10/06/22 10:50?? Negative? Electronically Signed on 10/06/22 02:50 PM Mahesh Garcia MD Emergency department Discharge instructions * Mahesh Garcia MD: PERFORM Event Display: ED Discharge Information Authored Date: [id number] BRUNO MARQUEZ :1985 Age:37 years Sex:Female Visit Date:10/06/2022 Primary Care Physician: Michele Workman HOTEL BAGGAGE HANDLER Discharge Instructions We would like to thank you for allowing us to assist you with your healthcare needs. The following includes patient education materials and information regarding your injury/illness. Diagnosis from Today's Visit Acute asthma exacerbation Upper respiratory infection Discharge Vitals Temperature??(Temporal Artery) 98.1 ??F (36.7 ??C) Heart Rate??(Peripheral) 117 Respiratory Rate?? 22 Blood Pressure?? 126/67?? Height?? 60.63 in (154.000 cm) Weight?? 163.17 lb (74.00 kg) BMI?? 31.000 Allergies penicillin G sodium??(Tumefaction) sulfa drugs??(Skin rash) azithromycin??(Swelling of hand) Clavulanic acid doxycycline What to Do Next You Need to Schedule the Following Appointments Follow Up with??Michele Workman NP When:??Within 1 month Where: [address] [address]- You were treated today on an emergency basis; it may be nicole to contact your primary care provider to notify them of your visit today. You may have been referred to your regular doctor or a specialist, please follow up as instructed. If your condition worsens or you can't get in to see the doctor, contact the Emergency Department. Medications What How Much When Why Instructions Next Dose New acetaminophen-dextromethorphan (Robitussin Maximum Strength Severe Cough Plus Sore Throat 650 mg-20 mg/ 20 mL oral liquid) 20 Milliliters Oral (given by mouth) Every 6 hours Acute asthma exacerbation Upper respiratory infection Duration: 5 Days Pickup at [place] [address] New benzonatate (Tessalon Perles 100 mg oral capsule) 1 Capsules Oral (given by mouth) 3 times a day as needed for as needed for cough Acute asthma exacerbation Upper respiratory infection Duration: 7 Days Pickup at [place] [address] New ipratropium-albuterol (!-DuoNeb 0.5 mg-2.5 mg/ 3 mL inhalation solution) 3 [place]iliters Nebulized inhalation (inhale using nebulizer) 4 times a day as needed for as needed for shortness of breath or wheezing Acute asthma exacerbation Upper respiratory infection Pickup at [place] [address] New predniSONE (predniSONE 10 mg oral tablet) 2 tab Oral (given by mouth) Every day Acute asthma exacerbation Upper respiratory infection Duration: 2 Days Take this medication on days 6 and 7 after taking the 40 mg dose for the first 5 days. ?? Pickup at [place] [address] New predniSONE (predniSONE 20 mg oral tablet) 2 tab Oral (given by mouth) Every day Acute asthma exacerbation Upper respiratory infection Duration: 5 Days Pickup at [place] [address] Unchanged albuterol (albuterol 2.5 mg/ 3 mL (0.083%) inhalation solution) 3 [place] Nebulized inhalation (inhale using nebulizer) Every 6 hours as needed for as needed for wheezing Unchanged albuterol (Ventolin HFA 90 mcg/ inh inhalation aerosol) 2 Puffs Inhale (breathe in) Every 6 hours as needed for as needed for wheezing Cough generic equivilent ok ?? Unchanged cetirizine (ZyrTEC) Unchanged colistin/ neomycin/ thonzonium/ HC otic (Cortisporin-TC otic suspension) 4 Drops Both ears 4 times a day Maxillary sinusitis Otitis externa Duration: 10 Days Unchanged valACYclovir (Valtrex) Pharmacy Information [id number]: [address] [place] [address] [phone] Education Materials Asthma Attack Asthma attack, also called acute bronchospasm, is the sudden narrowing and tightening of the air passages, which limits the amount of oxygen that can get into the lungs. The narrowing is caused by inflammation and tightening of the muscles in the air tubes (bronchi) in the lungs. Too much mucus is also produced, which narrows the airways more. This can cause trouble breathing, loud breathing (wheezing), and coughing. The goal of treatment is to open the airways in the lungs and reduce inflammation. What are the causes? Possible causes or triggers of this condition include: ? Animal dander, dust mites, or cockroaches. ? Mold, pollen from trees or grass, or cold air. ? Air pollutants such as dust, household it help desk manager, aerosol sprays, strong chemicals, strong odors, and smoke of any kind. ? Stress or strong emotions such as crying or laughing hard. ? Exercise or activity that requires a lot of energy. ? Substances in foods and drinks, such as dried fruits and wine, called sulfites. ? Certain medicines or medical conditions such as: ? Aspirin or beta-blockers. ? Infections or inflammatory conditions, such as a flu (influenza), a cold, pneumonia, or inflammation of the nasal membranes (rhinitis). ? Gastroesophageal reflux disease (GERD). GERD is a condition in which stomach acid backs up into your esophagus and spills into your trachea (windpipe), which can irritate your airways. What are the signs or symptoms? Symptoms of this condition include: ? Wheezing. This may sound like whistling while breathing. This may only happen at night. ? Excessive coughing. This may only happen at night. ? Chest tightness or pain. ? Shortness of breath. ? Feeling like you cannot get enough air no matter how hard you breathe (air hunger). How is this diagnosed? This condition may be diagnosed based on: ? Your medical history. ? Your symptoms. ? A physical exam. ? Tests to check for other causes of your symptoms or other conditions that may have triggered your asthma attack. These tests may include: ? A chest X-ray. ? Blood tests. ? Tests to assess lung function, such as breathing into a device that measures how much air you can inhale and exhale (spirometry). How is this treated? Treatment for this condition depends on the severity and cause of your asthma attack. ? For mild attacks, you may receive medicines through a hand-held inhaler (metered dose inhaler, or MDI) or through a device that turns liquid medicine into a mist (nebulizer). These medicines include: ? Quick relief or rescue medicines that quickly relax the airways and lungs. ? Long-acting medicines that are used daily to prevent (control) your asthma symptoms. ? For moderate or severe attacks, you may be treated with steroid medicines by mouth or through an IVinjection at the hospital. ? For severe attacks, you may need oxygen therapy or a breathing machine (ventilator). ? If your asthma attack was caused by an infection from bacteria, you will be given antibiotic medicines. Follow these instructions at home: Medicines ? Take imqh-yji-czzuliw and prescription medicines only as told by your health care provider. ? Keep your medicines up-to-date. ? Make sure you have all of your medicines available at all times. ? If you were prescribed an antibiotic medicine, take it as told by your health care provider. Do notstop taking the antibiotic even if you start to feel better. ? Tell your doctor if you may be to make sure your asthma medicine is safe to use during . Avoiding triggers ? Keep track of things that trigger your asthma attacks. Avoid exposure to these triggers. ? Do not use any products that contain nicotine or tobacco, such as cigarettes, e- cigarettes, and chewing tobacco. If you need help quitting, ask your health care provider. ? When there is a lot of pollen, air pollution, or humidity, keep windows closed and use an air conditioner or go to places with air conditioning. Asthma action plan ? Work with your health care provider to make a written plan for managing and treating your asthma attacks (asthma action plan). This plan should include: ? A list of your asthma triggers and how to avoid them. ? A list of symptoms that you may have during an asthma attack. ? Information about which medicine to take, when to take the medicine and how much of the medicine totake. ? Information to help you understand your peak flow measurements. ? Daily actions that you can take to control your asthma symptoms. ? Contact information for your health care providers. ? If you have an asthma attack, act quickly. Follow the emergency steps on your written asthma actionplan. This may prevent you from needing to go to the hospital. General instructions ? Avoid excessive exercise or activity until your asthma attack goes away. Ask your health care provider what activities are safe for you and when you can return to your normal activities. ? Stay up to date on all your vaccines, such as flu and pneumonia vaccines. ? Drink enough fluid to keep your urine pale yellow. Staying hydrated helps keep mucus in your lungs thin so it can be coughed up easily. ? Do not use alcohol until you have recovered. ? Keep all follow-up visits as told by your health care provider. This is important. Asthma requires careful medical care. Contact a health care provider if: ? You have followed your action plan for 1 hour and your peak flow reading is still at 50???79%. Thisis in the yellow zone, which means caution. ? You need to use your quick reliever medicine more frequently than normal. ? Your medicines are causing side effects, such as rash, itching, swelling, or trouble breathing. ? Your symptoms do not improve after 48 hours. ? You cough up mucus that is thicker than usual. ? You have a fever. Get help right away if: ? Your peak flow reading is less than 50% of your personal best. This is in the red zone, which meansdanger. ? You have trouble breathing. ? You develop chest pain or discomfort. ? Your medicines no longer seem to be helping. ? You are coughing up bloody mucus. ? You have a fever and your symptoms suddenly get worse. ? You have trouble swallowing. ? You feel very tired, and breathing becomes tiring. These symptoms may represent a serious problem that is an emergency. Do not wait to see if the symptoms will go away. Get medical help right away. Call your local emergency services (911 in the [place] Do not drive yourself to the hospital. Summary ? Asthma attacks are caused by narrowing or tightness in air passages, which causes shortness of breath, coughing, and loud breathing (wheezing). ? Many things can trigger an asthma attack, such as allergens, weather changes, exercise, strong odors, and smoke of any kind. ? If you have an asthma attack, act quickly. Follow the emergency steps on your written asthma actionplan. ? Get help right away if you have severe trouble breathing, chest pain, or fever, or if your home medicines are no longer helping with your symptoms. This information is not intended to replace advice given to you by your health care provider. Make sure you discuss any questions you have with your health care provider. Document Revised: 08/03/2020 Document Reviewed: 08/03/2020 [employer] Patient Education ?? 2021 [employer] Tests Performed Medications and Immunizations Administered Given !-DuoNeb, 3 mL, Inhale !-DuoNeb, 3 mL, Inhale !-DuoNeb, 3 mL, Inhale !-Robitussin, 400 mg, Oral lidocaine 2% injectable solution, 5 mL, NEB NS bolus, 1000 mL, IV Piggyback predniSONE, 40 mg, Oral Tessalon Perles, 200 mg, Oral Toradol, 15 mg, IV Push Lab Test Name Test Result Date/Time WBC 6.0 x10^3/mcL 10/06/2022 10:50 EST RBC 4.4 x10^6/mcL 10/06/2022 10:50 EST Hgb 13.3 g/dL 10/06/2022 10:50 EST Hct 39.7 % 10/06/2022 10:50 EST MCV 90.6 10/06/2022 10:50 EST MCH 30.4 pg 10/06/2022 10:50 EST MCHC 33.5 g/dL 10/06/2022 10:50 EST RDW-CV 12.3 % 10/06/2022 10:50 EST Platelets 338 x10^3/mcL 10/06/2022 10:50 EST Neutro Auto 58.2 % 10/06/2022 10:50 EST Lymph Auto 30.4 % 10/06/2022 10:50 EST [place] Auto 8.1 % 10/06/2022 10:50 EST Eos, Auto 2.3 % 10/06/2022 10:50 EST Basophil Auto 0.7 % 10/06/2022 10:50 EST Imm Gran Auto 0.3 % 10/06/2022 10:50 EST Neutro Absolute 3.5 x10^3/mcL 10/06/2022 10:50 EST D Dimer, (Quant.) 0.45 mg/L 10/06/2022 13:05 EST Sodium Level 141 mmol/L 10/06/2022 10:50 EST Potassium Level 3.3 mmol/L 10/06/2022 10:50 EST Chloride Level 104 mmol/L 10/06/2022 10:50 EST CO2 28 mmol/L 10/06/2022 10:50 EST Alk Phos 70 unit/L 10/06/2022 10:50 EST AST 18 unit/L 10/06/2022 10:50 EST ALT 39 unit/L 10/06/2022 10:50 EST BUN 6 mg/dL 10/06/2022 10:50 EST Glucose Level 107 mg/dL 10/06/2022 10:50 EST Creatinine Level 0.82 mg/dL 10/06/2022 10:50 EST eGFR AA 94 10/06/2022 10:50 EST eGFR Non-AA 94 10/06/2022 10:50 EST Calcium Level 9.0 mg/dL 10/06/2022 10:50 EST Protein Total 7.2 g/dL 10/06/2022 10:50 EST Albumin Level 4.0 g/dL 10/06/2022 10:50 EST Bilirubin Total 0.5 mg/dL 10/06/2022 10:50 EST Magnesium Level 1.8 mg/dL 10/06/2022 10:50 EST Troponin-I <5.0 pg/mL 10/06/2022 10:50 EST Beta hCG Qnt 1 mIntlUnit/mL 10/06/2022 10:45 EST Employed in healthcare? Unknown 10/06/2022 10:50 EST Symptomatic as defined by CDC? Unknown 10/06/2022 10:50 EST Hospitalized due to COVID-19? Unknown 10/06/2022 10:50 EST In ICU? Unknown 10/06/2022 10:50 EST Group care resident? Unknown 10/06/2022 10:50 EST status? Unknown 10/06/2022 10:50 EST SARS-CoV-2(Covid19)PCR(GXpert COVFLURSV) NEGATIVE 10/06/2022 10:50 EST Flu A (GXpert COVFLURSV) NEGATIVE 10/06/2022 10:50 EST Flu B (GXpert COVFLURSV) Neg-GeneXPert 10/06/2022 10:50 EST RSV (GXpert COVFLURSV) Neg-GeneXPert 10/06/2022 10:50 EST Patient/Head Up Operator Signature Patient Name:BRUNO MARQUEZ I have received this information and my questions have been answered. Patient/Head Up Operator Name: Patient/Head Up Operator Signature: Relationship to Patient: Witness Name/Signature: Date: Electronically Signed on: 10/06/2022 14:50 ESTSigned by:[facility] Emergency department Note * Mamie Brown M: PERFORM Event Display: ED Notes Authored Date: [id number] Patient Care team information Care Team Personnel Name: Michele Workman HOTEL BAGGAGE HANDLER Position: Physician Member Role: Primary Care Physician Address: Address: [address] Name: Carole Euceda Position: Nurse Member Role: ED Nurse Name: Mahesh Garcia MD Position: Physician Member Role: ED Physician Address: Address: [facility] [address], [place] [address] Care Team Related Persons Name: HECTOR OLSEN Name: MAX MARQUEZ Address: Home [address], [id number]
--- OUTSIDE RECORDS SUMMARY | 2023-07-25 15:25 | XMS_ITS | Continuity of Care Document ---
Author Name Unknown Organization [facility] Address [address] [place] [address] Care Team Providers Care Manager Stone Name Role Phone WorkmanMichele Esther Primary Care Physician Encounter [facility] Date(s): 01/19/23 - 01/19/23 [facility] [address] [place] [address] Discharge Disposition: Home or Self Care Attending Physician: Peggy Preston NP Admitting Physician: Peggy Preston NP Referring Physician: Peggy Preston NP Allergies, Adverse Reactions, Alerts Substance Reaction Severity Status doxycycline Unknown Active azithromycin Swelling of hand Moderate Active penicillin G sodium Tumefaction Severe Active sulfa drugs Skin rash Severe Active Clavulanic acid Unknown Active Assessment and Plan Diagnostic Tests Pending * Urine Culture 01/19/23 Immunizations Given and Recorded Vaccine Date Status [...] wheezing, # 30 EA, 0 Refill(s), Pharmacy: [facility], 154, cm, 10/06/22 10:29:00 EST, Height/Length Dosing, 74, kg, 10/06/22 10:29:00 EST, Weight Dosing Start Date: 10/06/22 Status: Ordered Advair Diskus 100 mcg-50 mcg inhalation powder 1 puffs, Inhale, BID, # 28 EA, 2 Refill(s), Pharmacy: [facility], 154, cm, 10/06/22 10:29:00 EST, Height/Length Dosing, 74, kg, 10/06/22 10:29:00 EST, Weight Dosing Start Date: 10/09/22 Status: Ordered albuterol 2.5 mg/3 mL (0.083%) inhalation solution 2.5 mg = 3 mL, NEB, every 6 hr, PRN as needed for wheezing, # 100 EA, 1 Refill(s), Pharmacy: [facility] Start Date: 09/19/22 Status: Ordered clindamycin 300 mg oral capsule 300 mg = 1 cap, Oral, TID, # 12 cap, 0 Refill(s), Pharmacy: [facility], 154, cm, 10/06/22 10:29:00 EST, Height/Length Dosing, 74, kg, 10/06/22 10:29:00 EST, Weight Dosing Start Date: 11/25/22 Stop Date: 11/29/22 Status: Ordered Valtrex 0 Refill(s) Start Date: 10/06/22 Status: Ordered Ventolin HFA 90 mcg/inh inhalation aerosol 2 puffs, Inhale, every 6 hr, PRN as needed for wheezing, generic equivilent ok, # 8 g, 1 Refill(s),Pharmacy: [facility] Start Date: 09/19/22 Status: Ordered ZyrTEC 0 Refill(s) Start Date: 10/06/22 Status: Ordered Social History Social History Type Response Tobacco Never tobacco user T obacco Use:. Sex Female Patient Care team information Care Team Personnel Name: Michele Workman NP Position: Physician Member Role: Primary Care Physician Address: Address: [address] [address] [place] Care Team Related Persons Name: HECTOR NIELSEN
--- OUTSIDE RECORDS SUMMARY | 2023-07-25 15:25 | XMS_ITS | Continuity of Care Document ---
Author Name Unknown Organization [facility] Address [address] [place] [address] Care Team Providers Care Group Home Supervisor Name Role Phone Michele Workman Primary Care Physician [phone] [facility]counter [facility] Date(s): 01/23/23 - 01/23/23 [facility] [address] [place] [address] Encounter Diagnosis Crush injury to finger(Discharge Diagnosis) - 01/23/23 Discharge Disposition: Home or Self Care Attending Physician: Michele Workman LOGISTICS COORDINATOR Admitting Physician: Michele Workman NP Referring Physician: Michele Workman LOGISTICS COORDINATOR Allergies, Adverse Reactions, Alerts Substance Reaction Severity Status doxycycline Unknown Active azithromycin Swelling of hand Moderate Active penicillin G sodium Tumefaction Severe Active sulfa drugs Skin rash Severe Active Clavulanic acid Unknown Active Immunizations Given and Recorded Vaccine Date Status [...] wheezing, # 30 EA, 0 Refill(s), Pharmacy: [facility], 154, cm, 10/06/22 10:29:00 EST, Height/Length Dosing, 74, kg, 10/06/22 10:29:00 EST, Weight Dosing Start Date: 10/06/22 Status: Ordered Advair Diskus 100 mcg-50 mcg inhalation powder 1 puffs, Inhale, BID, # 28 EA, 2 Refill(s), Pharmacy: [facility], 154, cm, 10/06/22 10:29:00 EST, Height/Length Dosing, 74, kg, 10/06/22 10:29:00 EST, Weight Dosing Start Date: 10/09/22 Status: Ordered albuterol 2.5 mg/3 mL (0.083%) inhalation solution 2.5 mg = 3 mL, NEB, every 6 hr, PRN as needed for wheezing, # 100 EA, 1 Refill(s), Pharmacy: [facility] Start Date: 09/19/22 Status: Ordered clindamycin 300 mg oral capsule 300 mg = 1 cap, Oral, TID, # 12 cap, 0 Refill(s), Pharmacy: [facility], 154, cm, 10/06/22 10:29:00 EST, Height/Length Dosing, 74, kg, 10/06/22 10:29:00 EST, Weight Dosing Start Date: 11/25/22 Stop Date: 11/29/22 Status: Ordered Valtrex 0 Refill(s) Start Date: 10/06/22 Status: Ordered Ventolin HFA 90 mcg/inh inhalation aerosol 2 puffs, Inhale, every 6 hr, PRN as needed for wheezing, generic equivilent ok, # 8 g, 1 Refill(s),Pharmacy: [facility] Start Date: 09/19/22 Status: Ordered ZyrTEC 0 Refill(s) Start Date: 10/06/22 Status: Ordered Social History Social History Type Response Tobacco Never tobacco user T obacco Use:. Sex Female Patient Care team information Care Team Personnel Name: Michele Workman NP Position: Physician Member Role: Informed Provider Address: Address: [address] Care Team Related Persons Name: HECTOR NIELSEN
--- OUTSIDE RECORDS SUMMARY | 2023-07-25 15:25 | XMS_ITS | Continuity of Care Document ---
Author Name Unknown Organization [facility] Address [address] [place] [address] Care Team Providers Care Assembler Installer General Name Role Phone Michele Workman Primary Care Physician [phone] Encounter [facility] Date(s): 06/21/23 - 06/21/23 [facility] [address] [place] [address] Discharge Disposition: Home or Self Care Attending Physician: Calli Lau NP Admitting Physician: Calli Lau NP Referring Physician: Calli Lau FUEL TECHNICIAN Allergies, Adverse Reactions, Alerts Substance Reaction Severity Status doxycycline Unknown Active azithromycin Swelling of hand Moderate Active penicillin G sodium Tumefaction Severe Active sulfa drugs Skin rash Severe Active Clavulanic acid Unknown Active Assessment and Plan Future Appointments Immunizations Given and Recorded Vaccine Date Status Refusal Reason SARS-CoV-2 (COVID-19) Ad26 vaccine 10/31/20 Record ed hepatitis B adult vaccine 09/14/10 Recorded hepatitis B adult vaccine 05/18/10 Recorded hepatitis B adult vaccine 04/12/10 Recorded influenza virus vaccine, inactivated 07/13/10 [place] rded tetanus/diphth/pertuss (Tdap) adult/adol 08/20/09 Recorded Medications Advair Diskus 100 mcg-50 mcg inhalation powder 1 puffs, Inhale, BID, # 1 EA, 1 Refill(s), Pharmacy: [id number], 154, cm, 10/06/22 10:29:00 EST, Height/Length Dosing, 74, kg, 10/06/22 10:29:00 EST, Weight Dosing Start Date: 05/30/23 Status: Ordered albuterol 2.5 mg/3 mL (0.083%) inhalation solution 2.5 mg = 3 mL, NEB, every 6 hr, PRN as needed for wheezing, # 100 EA, 1 Refill(s), Pharmacy: [facility] Start Date: 09/19/22 Status: Ordered clindamycin 300 mg oral capsule 300 mg = 1 cap, Oral, every 8 hr, # 12 cap, 0 Refill(s), Pharmacy: [place] [id number], 154, cm, 10/06/22 10:29:00 EST, Height/Length Dosing, 74, kg, 10/06/22 10:29:00 EST, Weight Dosing Start Date: 06/18/23 Stop Date: 06/22/23 Status: Ordered Diflucan 150 mg oral tablet 150 mg = 1 tab, Oral, Once, Repeat dose in 72 hours if no improvement., # 2 tab, 0 Refill(s), Pharmacy: [place] [id number], 154, cm, 10/06/22 10:29:00 EST, Height/Length Dosing, 74, kg, 10/06/22 10:29:00 EST, Weight Dosing Start Date: 06/11/23 Status: Ordered predniSONE 10 mg oral tablet See Instruction, Oral, Daily, 4 tabs daily x3 days, 3 tabs daily x3 days, 2 tabs daily x3 days, 1 tab daily x3 days, # 30 tab, 0 Refill(s), Pharmacy: [place] [id number], 154, cm, 10/06/22 10:29:00EST, Height/Length Dosing, 74, kg, 10/06/22 10:29:00 EST, Weight Dosing Start Date: 06/18/23 Status: Ordered prochlorperazine 5 mg oral tablet 5 mg = 1 tab, Oral, TID, 1-2 tabs three times a day as needed, # 30 tab, 1 Refill(s), Pharmacy: [facility], 154, cm, 10/06/22 10:29:00 EST, Height/Length Dosing, 74, kg, 10/06/22 10:29:00 EST, Weight Dosing Start Date: 04/09/23 Status: Ordered Tessalon Perles 100 mg oral capsule 100 mg = 1 cap, Oral, every 8 hr, PRN as needed for cough, # 30 cap, 0 Refill(s), Pharmacy: [id number], 154, cm, 10/06/22 10:29:00 EST, Height/Length Dosing, 73.6, kg, 06/21/23 10:58:00 EDT, Weight Dosing Start Date: 06/21/23 Status: Ordered Valtrex 0 Refill(s) Start Date: 10/06/22 Status: Ordered Ventolin HFA 90 mcg/inh inhalation aerosol 2 puffs, Inhale, every 6 hr, PRN as needed for wheezing, generic equivilent ok, # 8.5 g, 1 Refill(s), Pharmacy: [id number], 154, cm, 10/06/22 10:29:00 EST, Height/Length Dosing, 74, kg, 10/06/22 10:29:00 EST, Weight Dosing Start Date: 05/30/23 Status: Ordered ZyrTEC 0 Refill(s) Start Date: 10/06/22 Status: Ordered Problem List Condition Confirmation Course Effective Dates Status Health St atus Informant Bronchitis Confirmed Active Chronic cough Confirmed Active Fracture of left toe Confirmed Active Migraine Confirmed Active Sinusitis Confirmed Active Results Laboratory List Name Date SARS-CoV-2 (COVID-19)/Flu/RSV ([facility] ) (COVID-19/Flu/RSV ([facility])) 06/21/23 Most recent to oldest [Reference Range]: 1 SARS-CoV-2(Covid19)PCR([facility] COVFLURSV) [Negative] Negative (06/21/23 11:20 AM) Flu A ([facility] COVFLURSV) [Negative] Nega tive (06/21/23 11:20 AM) RSV ([facility] COVFLURSV) [Negative] Negati ve (06/21/23 11:20 AM) Flu B ([facility] COVFLURSV) [Negative] Nega tive (06/21/23 11:20 AM) Social History Social History Type Response Tobacco Never tobacco user T obacco Use:. Sex Female Patient Care team information Care Team Personnel Name: Michele Workman FUEL TECHNICIAN Position: Physician Member Role: Informed Provider Address: Address: [address] Care Team Related Persons Name: HECTOR NIELSEN
--- OUTSIDE RECORDS SUMMARY | 2023-07-25 15:25 | XMS_ITS | Continuity of Care Document ---
Author Name Unknown Organization [facility] Address [address] [place] [address] Care Team Providers Care Tire Inspector Name Role Phone Michele Workman Esther Primary Care Physician Encounter [facility] Date(s): 07/19/23 - 07/19/23 [facility] [address] [place] [address] Encounter Diagnosis COVID-19(Discharge Diagnosis) - 07/19/23 Asthma(Discharge Diagnosis) - 07/19/23 Acute costochondritis(Discharge Diagnosis) - 07/19/23 Hyperventilation(Discharge Diagnosis) - 07/19/23 Discharge Disposition: Home or Self Care Attending Physician: Tessa Wilson MD Admitting Physician: Tessa Wilson MD Allergies, Adverse Reactions, Alerts Substance Reaction Severity Status doxycycline Unknown Active azithromycin Swelling of hand Moderate Active penicillin G sodium Tumefaction Severe Active sulfa drugs Skin rash Severe Active NSAIDs Vomiting Mild Active Clavulanic acid Unknown Active Assessment and Plan Extracted from: Title:Clinical Document Author:Nalini Nolan te:07/19/23 Diagnosis: 1. COVID-19 Comment: Diagnosis: 2. Asthma Comment: Diagnosis: 3. Acute costochondritis Comment: Diagnosis: Respiratory problem Comment: Future Appointments Future Scheduled Tests Laboratory* Anti Nuclear Ab (LEILA), IFA [facility] 07/10/23 Functional Status 07/19/23 Family Member Travel History No recent t ravel Recent Travel History No recent travel Other exposure to Infectious Disease COV ID-19 Symptoms Present Immunizations Given and Recorded Vaccine Date Status [...] BID, # 1 EA, 1 Refill(s), Pharmacy: [id number], 154, cm, 10/06/22 10:29:00 EST, Height/Length Dosing, 74, kg, 10/06/22 10:29:00 EST, Weight Dosing Start Date: 05/30/23 Status: Ordered albuterol 2.5 mg/3 mL (0.083%) inhalation solution 2.5 mg = 3 mL, NEB, every 6 hr, PRN as needed for wheezing, # 100 EA, 1 Refill(s), Pharmacy: [facility] 415 Start Date: 09/19/22 Status: Ordered hydrOXYzine hydrochloride 25 mg oral tablet 25 mg = 1 tab, Oral, QID, PRN as needed for anxiety, # 40 tab, 1 Refill(s), Pharmacy: [facility] 4156, 154, cm, 10/06/22 10:29:00 EST, Height/Length Dosing, 74.7, kg, 07/10/23 9:02:00 EST, Weight Dosing Start Date: 07/10/23 Status: Ordered ipratropium-albuterol 0.5 mg-2.5 mg/3 mL inhalation solution 3 mL, NEB, QID, PRN agitation, # 180 mL, 1 Refill(s), Pharmacy: [facility] [id number], 154, cm, 10/06/22 10:29:00 EST, Height/Length Dosing, 74.7, kg, 07/10/23 9:02:00 EST, Weight Dosing Start Date: 07/18/23 Status: Ordered Paxlovid 150 mg-100 mg (300 mg-100 mg Dose) oral tablet 3 tab, Oral, BID, Take two 150 mg nirmatrelvir tablets with one 100 mg ritonavir tablet at the sametime as indicated on the blister cards. Provide Fact Sheet for Patients/Caregivers, # 30 tab, 0 Refill(s), Pharmacy: [facility] 4156, 154, cm, 10/06/22 10:29:00 EST, Height/Length Dosing, 74.7,kg, 07/10/23 9:02:00 EST, Weight Dosing Start Date: 07/18/23 Stop Date: 07/23/23 Status: Ordered prochlorperazine 5 mg oral tablet 5 mg = 1 tab, Oral, TID, 1-2 tabs three times a day as needed, # 30 tab, 1 Refill(s), Pharmacy: [facility] 4156, 154, cm, 10/06/22 10:29:00 EST, Height/Length Dosing, 74, kg, 10/06/22 10:29:00 EST, Weight Dosing Start Date: 04/09/23 Status: Ordered Tylenol Cold & Flu Severe oral tablet See Instructions, Patient requests this to be added to her bag that she picks up from drive thru ifpossible due to having covid, # 24 tab, 0 Refill(s), Pharmacy: [facility] 4156, 154, cm, 10/06/22 10:29:00 EST, Height/Length Dosing, 74.7, kg, 07/10/23 9:02:00 EST, Weight Dosing Start Date: 07/18/23 Status: Ordered Valtrex 0 Refill(s) Start Date: 10/06/22 Status: Ordered Ventolin HFA 90 mcg/inh inhalation aerosol 2 puffs, Inhale, every 6 hr, PRN as needed for wheezing, generic equivilent ok, # 8.5 g, 1 Refill(s), Pharmacy: [facility] 4156, 154, cm, 10/06/22 10:29:00 EST, [...] Confirmed Active Results Laboratory List Name Date Blood Gas Venous 07/19/23 Basic Metabolic Panel (BMP) 07/19/23 CBC w/ Diff 07/19/23 D-Dimer 11/30/23 Troponin-I 07/19/23 Automated Diff 07/19/23 Most recent to oldest [Reference Range]: 1 WBC [5.0-10.0 x10^3/mcL] 5.4 x10^3/mcL (07/19/23 1:24 PM) RBC [4.1-5.3 x10^6/mcL] 4.5 x10^6/mcL (07/19/23 1:24 PM) Neutro Auto [40.0-75.0 %] 54.5 % (07/19/23 1:24 PM) Lymph Auto [20.0-50.0 %] 33.3 % (07/19/23 1:24 PM) Reeves Auto [2.0-15.0 %] 9.3 % (07/19/23 1:24 PM) Basophil Auto [0.0-1.0 %] 0.6 % (07/19/23 1:24 PM) BUN [7-18 mg/dL] 5 mg/dL *LOW* (07/19/23 1:24 PM) Glucose Level [74-106 mg/dL] 111 mg/dL *HI* (07/19/23 1:24 PM) Potassium Level [3.5-5.1 mmol/L] 3.6 mmo l/L (07/19/23 1:24 PM) MCV [80.0-96.0 fL] 89.4 fL (07/19/23 1:24 PM) CO2 Total Venous 28 mmol/L *NA* (07/19/23 3:56 PM) HCO3 Venous [22-30 mmol/L] 27 mmol/L (07/19/23 3:56 PM) MCHC [31.0-35.0 g/dL] 34.3 g/dL (07/19/23 1:24 PM) Troponin-I [0.0-51.4 pg/mL] <5.0 pg/mL (07/19/23 1:24 PM) Sodium Level [136-145 mmol/L] 139 mmol/L (07/19/23 1:24 PM) Hct [37.0-47.0 %] 40.5 % (07/19/23 1:24 PM) Calcium Level [8.5-10.1 mg/dL] 9.9 mg/dL (07/19/23 1:24 PM) MCH [26.0-32.0 pg] 30.7 pg (07/19/23 1:24 PM) Neutro Absolute 2.9 x10^3/mcL *NA* (07/19/23 1:24 PM) Hgb [12.0-16.0 g/dL] 13.9 g/dL (07/19/23 1:24 PM) pCO2 Jerry [33-47 mmHg] 36 mmHg (07/19/23 3:56 PM) Platelets [130-450 x10^3/mcL] 329 x10^3/ mcL (07/19/23 1:24 PM) CO2 [21-32 mmol/L] 26 mmol/L (07/19/23 1:24 PM) pO2 Jerry 25 mmHg *NA* (07/19/23 3:56 PM) pH Jerry [7.32-7.43 pH unit(s)] 7.48 pH un it(s) *HI* (07/19/23 3:56 PM) O2 Sat Jerry 52 % *NA* (07/19/23 3:56 PM) eGFR Non-AA [>=60] 114 (07/19/23 1:24 PM) eGFR AA [>=60] 114 (07/19/23 1:24 PM) Base Excess Venous 3.5 mmol/L *NA* (07/19/23 3:56 PM) Chloride Level [98-107 mmol/L] 103 mmol/ L (07/19/23 1:24 PM) RDW-CV [11.5-14.5 %] 12.8 % (07/19/23 1:24 PM) Imm Gran Auto [0.0-0.9 %] 0.2 % (07/19/23 1:24 PM) Creatinine Level [0.55-1.02 mg/dL] 0.70 mg/dL (07/19/23 1:24 PM) D Dimer, (Quant.) [0.00-0.50 mg/L] 0.43 mg/L 1 (07/19/23 1:24 PM) Eos, Auto [1.0-6.0 %] 2.1 % (07/19/23 1:24 PM) 1Interpretive Data: Exclusion of PE: Effective May 08, 2012 a new D-Dimer assay [JouleX] is being implemented, this test has a new reference range <0.50 mg/L FEU. This assay was evaluated in a multi-center study to validate the exclusion of PE using fresh specimens collected from 701 consecutive patients presenting in the ED with suspected PE. Study patients were evaluated using the Wells' rules to estimate high, moderate or low probability of PE, a D-Dimer result of <0.50 mg/L FEU was considered negative and a D-Dimer result >/= 0.50 was considered positive for PE. Vital Signs Most recent to oldest [Reference Range]: 1 2 3 Temperature Temporal Artery [36-38 Deg C] 36.3 Deg C (07/19/23 3:30 PM) 36.3 Deg C (07/19/23 12:41 PM) Peripheral Pulse Rate [60-100 bpm] 72 bpm (07/19/23 4:30 PM) 66 bpm (07/19/23 4:00 PM) 83 bpm (07/19/23 3:30 PM) Heart Rate Monitored [60-100 bpm] 76 bpm (07/19/23 3:20 PM) 69 bpm (07/19/23 2:00 PM) 94 bpm (07/19/23 12:41 PM) Respiratory Rate [12-24 br/min] 22 br/min (07/19/23 3:20 PM) 19 br/min (07/19/23 2:00 PM) 21 br/min (07/19/23 1:30 PM) Blood Pressure [90-140/60-90 mmHg] 93/63mmHg (07/19/23 4:00 PM) 112/62mmHg (07/19/23 3:30 PM) 112/74mmHg (07/19/23 3:20 PM) Mean Arterial Pressure, Cuff [70-110 mmHg] 73 mmHg (07/19/23 4:00 PM) 87 mmHg (07/19/23 3:20 PM) 84 mmHg (07/19/23 2:00 PM) Mean Arterial Pressure Cuff 89 mmHg (07/19/23 1:30 PM) Blood Pressure Location Left arm (07/19/23 2:00 PM) Left arm (07/19/23 1:30 PM) Blood Pressure Method Automatic (07/19/23 2:00 PM) Automatic (11/30/23 1:30 PM) Weight Estimated 72 kg (07/19/23 12:41 PM) Body Mass Index Estimated 31.16 kg/m2 (07/19/23 12:41 PM) Height/Length Estimated 152 cm (07/19/23 12:41 PM) Social History Social History Type Response Tobacco Never tobacco user T obacco Use:. Sex Female Physician Emergency department Note * Han Cardenas MD: PERFORM Event Display: ED Note Physician Authored Date: [id number] BRUNO MARQUEZ Kia :1985 Age:37 years Sex:Female Visit Date:07/19/2023 Primary Care Physician: Michele Workman NP Basic Information Time Seen: Han Cardenas MD / 07/19/2023 12:52 Chief Complaint C19+ asthmatic c.o chest pain starting yesterday reports starts in sternum now radiating to left shoulder. +coughing. Took 2x duoneb at home, now, Feels winded worse with movement. Intermittant fevers at home. 100% RA. Paxlovid called into pharm History Of Present Illness: Context is??patient with COVID x5 days.?? Prior Paxlovid. ??Prior treatment with acetaminophen.?? Location is left upper chest.?? Intensity at worst is 9/10.?? Current intensity is 8/10. ??Aggravated??by moving, deep breath. ??Relieved by not moving. Review of Systems: Review of systems positive for fever, chills, fatigue, sore throat, earache, headache. Physical Exam Vitals & Measurements T:??36.3?C ??(Temporal Artery)?? HR:??70??(Peripheral)?? HR:??69??(Monitored)?? RR:??19?? BP:??112/70?? SpO2:??97%?? HT:??152??cm?? WT:??72??kg??(Estimated)?? BMI:??31.16?? Pain Score:??7?? O2 Therapy:??Room air?? No distress. ??Respirations normal. ??Chest auscultation is normal. ??Auscultation is normal.?? Back palpation normal.?? Chest palpation reveals tenderness over the left anterior chest wall. ??Abdomen is obese and nontender. ??Extremities are normal. ??Mental status is normal. Medical Decision Making: Problem complexity is low. ??Data complexity is low. ??Management risk are low. ??[facility] coding 06590. Procedure No Qualifying Data Assessment/Plan 1.??COVID-19??U07.1 Ordered: Discharge Patient, 07/19/23 14:37:00 EST, Home Independently, Constant Indicator ?? 2.??Asthma??J45.909 Ordered: Discharge Patient, 07/19/23 14:37:00 EST, Home Independently, Constant Indicator ?? 3.??Acute costochondritis??M94.0 Ordered: Discharge Patient, 07/19/23 14:37:00 EST, Home Independently, Constant Indicator ?? Orders: cephalexin 250 mg oral capsule, 250 mg = 1 cap, Oral, QID, X 10 days, # 40 cap, 0 Refill(s), 07/29/23 14:31:00 EST, Pharmacy: [id number], 154, cm, 10/06/22 10:29:00 EST, Height/Length Dosing, 74.7, kg, 07/10/23 9:02:00 EST, Weight Dosing THP nirmatrelvir-ritonavir 150 mg-100 mg tab, 1 EA, Oral, Misc, Once, First Dose: 07/19/23 14:27:00EST, Stop Date: 07/19/23 14:27:00 EST, Physician Stop, STAT Medication Reconciliation New Prescription cephalexin (cephalexin 250 mg oral capsule)1 Capsules Oral (given by mouth) 4 times a day for 10 Days. Refills: 0. ?? Unchanged acetaminophen/dextromethorphan/guaifenesin/PE (Tylenol Cold & Flu Severe oral tablet)Patient requests this to be added to her bag that she picks up from drive thru if possible due to having covid. Refills: 0. ?? albuterol (albuterol 2.5 mg/3 mL (0.083%) inhalation solution)3 Milliliters Nebulized inhalation (inhale using nebulizer) every 6 hours as needed as needed for wheezing. Refills: 1. ?? albuterol (Ventolin HFA 90 mcg/inh inhalation aerosol)2 Puffs Inhale (breathe in) every 6 hours as needed as needed for wheezing. generic equivilent ok. Refills: 1. ?? cetirizine (ZyrTEC) ?? fluticasone-salmeterol (Advair Diskus 100 mcg-50 mcg inhalation powder)1 Puffs Inhale (breathe in) 2 times a day. Refills: 1. ?? hydrOXYzine (hydrOXYzine hydrochloride 25 mg oral tablet)1 tab Oral (given by mouth) 4 times a day as needed as needed for anxiety. Refills: 1. ?? ipratropium-albuterol (ipratropium-albuterol 0.5 mg-2.5 mg/3 mL inhalation solution)3 Milliliters Nebulized inhalation (inhale using nebulizer) 4 times a day as needed agitation. Refills: 1. ?? nirmatrelvir-ritonavir (Paxlovid 150 mg-100 mg (300 mg-100 mg Dose) oral tablet)3 tab Oral (given by mouth) 2 times a day for 5 Days. Take two 150 mg nirmatrelvir tablets with one 100 mg ritonavir tablet at the same time as indicated on the blister cards. Provide Fact Sheet for Patients/Caregivers. Refills: 0. ?? prochlorperazine (prochlorperazine 5 mg oral tablet)1 tab Oral (given by mouth) 3 times a day. 1-2 tabs three times a day as needed. Refills: 1. ?? valACYclovir (Valtrex) Problem List/Past Medical History Ongoing Bronchitis Chronic cough Fracture of left toe Migraine Sinusitis Historical No qualifying data Medication Administration Given ketorolac, 30 mg, IV Push Allergies penicillin G sodium??(Tumefaction) sulfa drugs??(Skin rash) azithromycin??(Swelling of hand) NSAIDs??(Vomiting) Clavulanic acid doxycycline Social History Alcohol Current, 1-2 times per year Electronic Cigarette/Vaping Electronic Cigarette Use: Never. Employment/School Employed Home/Environment Lives with Alone. Nutrition/Health Diet restrictions: gluten and dairy free. Substance Use Never Tobacco Never tobacco user Tobacco Use:. Lab Results CBC and Differential?? LATEST RESULTS?? HISTORICAL RESULTS?? WBC?? 07/19/23 13:24?? 5.4?? 10/06/22?? 6.0?? RBC?? 07/19/23 13:24?? 4.5?? 10/06/22?? 4.4?? Hgb?? 07/19/23 13:24?? 13.9?? 10/06/22?? 13.3?? Hct?? 07/19/23 13:24?? 40.5?? 10/06/22?? 39.7?? MCV?? 07/19/23 13:24?? 89.4?? 10/06/22?? 90.6?? MCH?? 07/19/23 13:24?? 30.7?? 10/06/22?? 30.4?? MCHC?? 07/19/23 13:24?? 34.3?? 10/06/22?? 33.5?? RDW-CV?? 07/19/23 13:24?? 12.8?? 10/06/22?? 12.3?? Platelets?? 07/19/23 13:24?? 329?? 10/06/22?? 338?? Neutro Auto?? 07/19/23 13:24?? 54.5?? 10/06/22?? 58.2?? Lymph Auto?? 07/19/23 13:24?? 33.3?? 10/06/22?? 30.4?? Reeves Auto?? 07/19/23 13:24?? 9.3?? 10/06/22?? 8.1?? Eos, Auto?? 07/19/23 13:24?? 2.1?? 10/06/22?? 2.3?? Basophil Auto?? 07/19/23 13:24?? 0.6?? 10/06/22?? 0.7?? Imm Gran Auto?? 07/19/23 13:24?? 0.2?? 10/06/22?? 0.3?? Neutro Absolute?? 07/19/23 13:24?? 2.9?? 10/06/22?? 3.5? Coagulation?? LATEST RESULTS?? HISTORICAL RESULTS?? D Dimer, (Quant.)?? 07/19/23 13:24?? 0.43?? 10/06/22?? 0.45? Routine Chemistry?? LATEST RESULTS?? HISTORICAL RESULTS?? Sodium Level?? 07/19/23 13:24?? 139?? 10/06/22?? 141?? Potassium Level?? 07/19/23 13:24?? 3.6?? 10/06/22?? 3.3 ??Low?? Chloride Level?? 07/19/23 13:24?? 103?? 10/06/22?? 104?? CO2?? 07/19/23 13:24?? 26?? 10/06/22?? 28?? BUN?? 07/19/23 13:24?? 5 ??Low?? 10/06/22?? 6 ??Low?? Glucose Level?? 07/19/23 13:24?? 111 ??High?? 10/06/22?? 107 ??High?? Creatinine Level?? 07/19/23 13:24?? 0.70?? 10/06/22?? 0.82?? eGFR AA?? 07/19/23 13:24?? 114?? 10/06/22?? 94?? eGFR Non-AA?? 07/19/23 13:24?? 114?? 10/06/22?? 94?? Calcium Level?? 07/19/23 13:24?? 9.9?? 10/06/22?? 9.0? Cardiac Isoenzymes?? LATEST RESULTS?? HISTORICAL RESULTS?? Troponin-I?? 07/19/23 13:24?? <5.0?? 10/06/22?? <5.0? Electronically Signed on 07/19/23 02:38 PM Han Cardenas MD Emergency department Discharge instructions * Han Cardenas MD: PERFORM Event Display: ED Discharge Information Authored Date: [id number] BRUNO MARQUEZ :1985 Age:37 years Sex:Female Visit Date:07/19/2023 Primary Care Physician: Michele Workman CLAY ARTIST Discharge Instructions We would like to thank you for allowing us to assist you with your healthcare needs. The following includes patient education materials and information regarding your injury/illness. Diagnosis from Today's Visit COVID-19 Asthma Acute costochondritis Hyperventilation Discharge Vitals Temperature??(Temporal Artery) 97.3 ??F (36.3 ??C) Heart Rate??(Peripheral) 83 Respiratory Rate?? 22 Blood Pressure?? 112/62?? Height?? 59.84 in (152 cm) Weight??(Estimated) 158.76 lb (72 kg) BMI?? 31.16 Allergies penicillin G sodium??(Tumefaction) sulfa drugs??(Skin rash) azithromycin??(Swelling of hand) NSAIDs??(Vomiting) Clavulanic acid doxycycline What to Do Next Instructions from Your Care Team Your pain is caused from inflammation of the joints where your ribs meet your sternum.?? It is mostuncomfortable but is not dangerous.?? It will respond to acetaminophen 1000 mg up to 4 times per day.?? Topical application of a liniment like Voltaren??or Aspercreme??will also provide some benefit.?? Ice packs may also help. ?? For your COVID??take??Paxlovid as per the directions on the package. ?? Continue with your asthma medications. ? Take 1??lorazepam 1 mg up to twice a day as needed??for feeling??lightheaded/unwell.?? If worsening??follow-up here or with your primary care provider. ?? Han Cardenas MD Upcoming Scheduled Appointments Sunday 9:20 AM EST ?? With: Michele Workman NP Where: [address] [address] Status: Confirmed You were treated today on an emergency [...] How Much When Why Instructions Next Dose Unchanged acetaminophen/ dextromethorphan/ guaifenesin/ PE (Tylenol Cold & Flu Severe oral tablet) See instructions Acute COVID-19 Patient requests this to be added to her bag that she picks up from drive thru if possible due to having covid ?? Unchanged albuterol (albuterol 2.5 mg/ 3 mL (0.083%) inhalation solution) 3 Milliliters Nebulized inhalation (inhale using nebulizer) Every 6 hours as needed for as needed for wheezing Unchanged albuterol (Ventolin HFA 90 mcg/ inh inhalation aerosol) 2 Puffs Inhale (breathe in) Every 6 hours as needed for as needed for wheezing Cough generic equivilent ok ?? Unchanged cetirizine (ZyrTEC) Unchanged fluticasone-salmeterol (Advair Diskus 100 mcg-50 mcg inhalation powder) 1 Puffs Inhale (breathe in) 2 times a day Asthma flare Unchanged hydrOXYzine (hydrOXYzine hydrochloride 25 mg oral tablet) 1 tab Oral (given by mouth) 4 times a day as needed for as needed for anxiety Anxiety attack Unchanged ipratropium-albuterol (ipratropium-albuterol 0.5 mg-2.5 mg/ 3 mL inhalation solution) 3 Milliliters Nebulized inhalation (inhale using nebulizer) 4 times a day as needed for agitation Unchanged nirmatrelvir-ritonavir (Paxlovid 150 mg-100 mg (300 mg-100 mg Dose) oral tablet) 3 tab Oral (given by mouth) 2 times a day Acute COVID-19 Duration: 5 Days Take two 150 mg nirmatrelvir tablets with one 100 mg ritonavir tablet at the same time as indicatedon the blister cards. Provide Fact Sheet for Patients/ Caregivers ?? Unchanged prochlorperazine (prochlorperazine 5 mg oral tablet) 1 tab Oral (given by mouth) 3 times a day Migraine 1-2 tabs three times a day as needed ?? Unchanged valACYclovir (Valtrex) Tests Performed Medications and Immunizations Administered Given 0.9% NaCl bolus, 1000 mL, Hydration Bolus. For: COVID-19,??Asthma,??Acute costochondritis ipratropium-albuterol 0.5 mg-2.5 mg/3 mL inhalation solution, 3 mL, Inhale ketorolac, 30 mg, IV Push THP nirmatrelvir-ritonavir 150 mg-100 mg tab, 1 EA, Oral Lab Test Name Test Result Date/Time pH Jerry 7.48 pH unit(s) 07/19/2023 15:56 EST pCO2 Jerry 36 mmHg 07/19/2023 15:56 EST pO2 Jerry 25 mmHg 07/19/2023 15:56 EST HCO3 Venous 27 mmol/L 07/19/2023 15:56 EST O2 Sat Jerry 52 % 07/19/2023 15:56 EST CO2 Total Venous 28 mmol/L 07/19/2023 15:56 EST Base Excess Venous 3.5 mmol/L 07/19/2023 15:56 EST WBC 5.4 x10^3/mcL 07/19/2023 13:24 EST RBC 4.5 x10^6/mcL 07/19/2023 13:24 EST Hgb 13.9 g/dL 07/19/2023 13:24 EST Hct 40.5 % 07/19/2023 13:24 EST MCV 89.4 fL 07/19/2023 13:24 EST MCH 30.7 pg 07/19/2023 13:24 EST MCHC 34.3 g/dL 07/19/2023 13:24 EST RDW-CV 12.8 % 07/19/2023 13:24 EST Platelets 329 x10^3/mcL 07/19/2023 13:24 EST Neutro Auto 54.5 % 07/19/2023 13:24 EST Lymph Auto 33.3 % 07/19/2023 13:24 EST Reeves Auto 9.3 % 07/19/2023 13:24 EST Eos, Auto 2.1 % 07/19/2023 13:24 EST Basophil Auto 0.6 % 07/19/2023 13:24 EST Imm Gran Auto 0.2 % 07/19/2023 13:24 EST Neutro Absolute 2.9 x10^3/mcL 07/19/2023 13:24 EST D Dimer, (Quant.) 0.43 mg/L 07/19/2023 13:24 EST Sodium Level 139 mmol/L 07/19/2023 13:24 EST Potassium Level 3.6 mmol/L 07/19/2023 13:24 EST Chloride Level 103 mmol/L 07/19/2023 13:24 EST CO2 26 mmol/L 07/19/2023 13:24 EST BUN 5 mg/dL 07/19/2023 13:24 EST Glucose Level 111 mg/dL 07/19/2023 13:24 EST Creatinine Level 0.70 mg/dL 07/19/2023 13:24 EST eGFR AA 114 07/19/2023 13:24 EST eGFR Non-AA 114 07/19/2023 13:24 EST Calcium Level 9.9 mg/dL 07/19/2023 13:24 EST Troponin-I <5.0 pg/mL 07/19/2023 13:24 EST Patient/Icu Staff Nurse Signature Patient Name:JIMMY, BRUNO Adam I have received this information and my questions have been answered. Patient/Icu Staff Nurse Name: Patient/Icu Staff Nurse Signature: Relationship to Patient: Witness Name/Signature: Date: Electronically Signed on: 07/19/2023 16:31 ESTSigned by:[facility] * Han Cardenas MD: PERFORM Event Display: ED Discharge Information Authored Date: [id number] BRUNO MARQUEZ :1985 Age:37 years Sex:Female Visit Date:07/19/2023 Primary Care Physician: Michele Workman NP Discharge Instructions We would like to thank you for allowing us to assist you with your healthcare needs. The following includes patient education materials and information regarding your injury/illness. Diagnosis from Today's Visit COVID-19 Asthma Acute costochondritis Discharge Vitals Temperature??(Temporal Artery) 97.3 ??F (36.3 ??C) Heart Rate??(Peripheral) 70 Heart Rate??(Monitored) 69 Respiratory Rate?? 19 Blood Pressure?? 112/70?? Height?? 59.84 in (152 cm) Weight??(Estimated) 158.76 lb (72 kg) BMI?? 31.16 Allergies penicillin G sodium??(Tumefaction) sulfa drugs??(Skin rash) azithromycin??(Swelling of hand) NSAIDs??(Vomiting) Clavulanic acid doxycycline What to Do Next Instructions from Your Care Team Your pain is caused from inflammation of the joints where your ribs meet your sternum.?? It is mostuncomfortable but is not dangerous.?? It will respond to acetaminophen 1000 mg up to 4 times per day.?? Topical application of a liniment like Voltaren??or Aspercreme??will also provide some benefit.?? Ice packs may also help. ?? For your COVID??take??Paxlovid as per the directions on the package. ?? Continue with your asthma medications. ?? Follow-up here as needed. ?? Han Cardenas MD Upcoming Scheduled Appointments Sunday 9:20 AM EST ?? With: Michele Workman NP Where: [facility] [address] [address] Status: Confirmed You were treated today on an emergency [...] Much When Why Instructions Next Dose New cephalexin (cephalexin 250 mg oral capsule) 1 Capsules Oral (given by mouth) 4 times a day Duration: 10 Days Pickup at [id number] Unchanged acetaminophen/ dextromethorphan/ guaifenesin/ PE (Tylenol Cold & Flu Severe oral tablet) See instructions Acute COVID-19 Patient requests this to be added to her bag that she picks up from drive thru if possible due to having covid ?? Unchanged albuterol (albuterol 2.5 mg/ 3 mL (0.083%) inhalation solution) 3 Milliliters Nebulized inhalation (inhale using nebulizer) Every 6 hours as needed for as needed for wheezing Unchanged albuterol (Ventolin HFA 90 mcg/ inh inhalation aerosol) 2 Puffs Inhale (breathe in) Every 6 hours as needed for as needed for wheezing Cough generic equivilent ok ?? Unchanged cetirizine (ZyrTEC) Unchanged fluticasone-salmeterol (Advair Diskus 100 mcg-50 mcg inhalation powder) 1 Puffs Inhale (breathe in) 2 times a day Asthma flare Unchanged hydrOXYzine (hydrOXYzine hydrochloride 25 mg oral tablet) 1 tab Oral (given by mouth) 4 times a day as needed for as needed for anxiety Anxiety attack Unchanged ipratropium-albuterol (ipratropium-albuterol 0.5 mg-2.5 mg/ 3 mL inhalation solution) 3 Milliliters Nebulized inhalation (inhale using nebulizer) 4 times a day as needed for agitation Unchanged nirmatrelvir-ritonavir (Paxlovid 150 mg-100 mg (300 mg-100 mg Dose) oral tablet) 3 tab Oral (given by mouth) 2 times a day Acute COVID-19 Duration: 5 Days Take two 150 mg nirmatrelvir tablets with one 100 mg ritonavir tablet at the same time as indicatedon the blister cards. Provide Fact Sheet for Patients/ Caregivers ?? Unchanged prochlorperazine (prochlorperazine 5 mg oral tablet) 1 tab Oral (given by mouth) 3 times a day Migraine 1-2 tabs three times a day as needed ?? Unchanged valACYclovir (Valtrex) Pharmacy Information [facility]: [address] [id number] [phone] Tests Performed Medications and Immunizations Administered Given ketorolac, 30 mg, IV Push Lab Test Name Test Result Date/Time WBC 5.4 x10^3/mcL 07/19/2023 13:24 EST RBC 4.5 x10^6/mcL 07/19/2023 13:24 EST Hgb 13.9 g/dL 07/19/2023 13:24 EST Hct 40.5 % 07/19/2023 13:24 EST MCV 89.4 fL 07/19/2023 13:24 EST MCH 30.7 pg 07/19/2023 13:24 EST MCHC 34.3 g/dL 07/19/2023 13:24 EST RDW-CV 12.8 % 07/19/2023 13:24 EST Platelets 329 x10^3/mcL 07/19/2023 13:24 EST Neutro Auto 54.5 % 07/19/2023 13:24 EST Lymph Auto 33.3 % 07/19/2023 13:24 EST Reeves Auto 9.3 % 07/19/2023 13:24 EST Eos, Auto 2.1 % 07/19/2023 13:24 EST Basophil Auto 0.6 % 07/19/2023 13:24 EST Imm Gran Auto 0.2 % 07/19/2023 13:24 EST Neutro Absolute 2.9 x10^3/mcL 07/19/2023 13:24 EST D Dimer, (Quant.) 0.43 mg/L 07/19/2023 13:24 EST Sodium Level 139 mmol/L 07/19/2023 13:24 EST Potassium Level 3.6 mmol/L 07/19/2023 13:24 EST Chloride Level 103 mmol/L 07/19/2023 13:24 EST CO2 26 mmol/L 07/19/2023 13:24 EST BUN 5 mg/dL 07/19/2023 13:24 EST Glucose Level 111 mg/dL 07/19/2023 13:24 EST Creatinine Level 0.70 mg/dL 07/19/2023 13:24 EST eGFR AA 114 07/19/2023 13:24 EST eGFR Non-AA 114 07/19/2023 13:24 EST Calcium Level 9.9 mg/dL 07/19/2023 13:24 EST Troponin-I <5.0 pg/mL 07/19/2023 13:24 EST Patient/Icu Staff Nurse Signature Patient Name:BRUNO MARQUEZ I have received this information and my questions have been answered. Patient/Icu Staff Nurse Name: Patient/Icu Staff Nurse Signature: Relationship to Patient: Witness Name/Signature: Date: Electronically Signed on: 07/19/2023 14:37 ESTSigned by:[facility] Discharge summary * Nalini Nolan: PERFORM Event Display: Discharge Note Authored Date: [id number] * Nalini Nolan: PERFORM Event Display: Discharge Note Authored Date: [id number] Diagnosis: 1. COVID-19 Comment: Diagnosis: 2. Asthma Comment: Diagnosis: 3. Acute costochondritis Comment: Diagnosis: Respiratory problem Comment: Electronically Signed on 07/19/23 02:49 PM Nalini Nolan Patient Care team information Care Team Personnel Name: Michele Workman CLAY ARTIST Position: Physician Member Role: Informed Provider Address: Address: [address] Name: Catarina Connelly RN Position: Nurse Member Role: ED Nurse Name: Han Cardenas MD Position: Physician Member Role: ED Physician Address: Address: [address] [place] [id number] Care Team Related Persons Name: HECTOR NIELSEN
--- OUTSIDE RECORDS SUMMARY | 2023-07-25 15:25 | XMS_ITS | Continuity of Care Document ---
Author Name Unknown Organization [facility] Address [address] [place] [address] Care Team Providers Care Battery Container Tester Name Role Phone Michele Workman Primary Care Physician [facility]counter [facility] Date(s): 04/06/23 - 04/06/23 [facility] [address] [place] [address] Encounter Diagnosis Toe pain, right(Discharge Diagnosis) - 04/06/23 Discharge Disposition: Home or Self Care Attending Physician: Michele Workman BAKER HEAD Admitting Physician: Michele Workman NP Referring Physician: Michele Workman BAKER HEAD Allergies, Adverse Reactions, Alerts Substance Reaction Severity [...] wheezing, # 30 EA, 0 Refill(s), Pharmacy: [id number], 154, cm, 10/06/22 10:29:00 EST, Height/Length Dosing, 74, kg, 10/06/22 10:29:00 EST, Weight Dosing Start Date: 10/06/22 Status: Ordered Advair Diskus 100 mcg-50 mcg inhalation powder 1 puffs, Inhale, BID, # 28 EA, 2 Refill(s), Pharmacy: [facility], 154, cm, 10/06/22 10:29:00 EST, Height/Length Dosing, 74, kg, 10/06/22 10:29:00 EST, Weight Dosing Start Date: 10/09/22 Status: Ordered albuterol 2.5 mg/3 mL (0.083%) inhalation solution 2.5 mg = 3 mL, NEB, every 6 hr, PRN as needed for wheezing, # 100 EA, 1 Refill(s), Pharmacy: [facility] Start Date: 09/19/22 Status: Ordered clindamycin 300 mg oral capsule 300 mg = 1 cap, Oral, TID, # 12 cap, 0 Refill(s), Pharmacy: [facility], 154, cm, 10/06/22 10:29:00 EST, Height/Length Dosing, 74, kg, 10/06/22 10:29:00 EST, Weight Dosing Start Date: 11/25/22 Stop Date: 11/29/22 Status: Ordered Valtrex 0 Refill(s) Start Date: 10/06/22 Status: Ordered Ventolin HFA 90 mcg/inh inhalation aerosol 2 puffs, Inhale, every 6 hr, PRN as needed for wheezing, generic equivilent ok, # 8 g, 1 Refill(s),Pharmacy: [facility] Start Date: 09/19/22 Status: Ordered ZyrTEC 0 Refill(s) Start Date: 10/06/22 Status: Ordered Social History Social History Type Response Tobacco Never tobacco user T obacco Use:. Sex Female Patient Care team information Care Team Personnel Name: Michele Workman NP Position: Physician Member Role: Informed Provider Address: Address: [address] Care Team Related Persons Name: HECTOR NIELSEN
[2023-07-25 15:54] LABS: Absolute Basophil Count 0.05 10^3/uL (0.0-0.2); Absolute Eosinophil Count 0.04 10^3/uL (0.0-0.7); Absolute Lymphocyte Count 3.02 10^3/uL (1.2-3.4); Absolute Monocyte Count 0.58 10^3/uL (0.1-0.8); Absolute Neutrophil Count 6.04 10^3/uL (1.2-6.7); Basophils % 0.5; Eosinophils % 0.4; HCT 40.1 % (36.0-46.0); HGB 13.4 g/dL (11.2-15.7); Lymphocytes % 30.7; MCH 30.2 pg (27.0-33.0); MCHC 33.4 % (32.0-36.0); MCV 91 fL (80-95); Monocytes % 5.9; Neutrophils % 61.5; Platelet Count 413 10^3/uL (130-400); RBC 4.43 10^6/uL (3.93-5.22); RDW 12.7 % (11.7-14.6); RDW-SD 41.5 fL; WBC 9.83 10^3/uL (4.4-10.8)
[2023-07-27 08:20] LABS: IgE 7 IU/mL (<158)
== END 2023-07-25 15:21 | disposition home or self-care (01) ==
LOC: LBO 15:21
PROVIDERS: PCP Nurse Practitioner Family; Visit Provider Physician Assistant Surgical
DX: J45.909 Unspecified asthma, uncomplicated (principal)
CPT/HCPCS: 36415; 82785; 85025

== ENCOUNTER 2024-01-25 15:15 | Outpatient (REF) | payer MEDICAID, SELFPAY ==
[2024-01-28 15:38] LABS: Chlamydia Result Negative (Negative); GC Result Negative (Negative)
== END 2024-01-25 15:16 | disposition home or self-care (01) ==
LOC: LBN 15:15
PROVIDERS: PCP Nurse Practitioner Family; Visit Provider Obstetrics & Gynecology
DX: Z70.8 Other sex counseling (principal)
CPT/HCPCS: 87491; 87591

== ENCOUNTER 2024-01-25 15:23 | Outpatient (CLI) | payer MEDICAID, SELFPAY ==
[2024-01-28 11:09] LABS: HIV-1/2 Ag & Ab Screen Negative (Negative)
[2024-01-28 12:41] LABS: Hepatitis A Antibody IgM Negative (Negative); Hepatitis B Core Antibody Negative (Negative); Hepatitis B surface Ag Negative (Negative); Hepatitis C Ab w Rflx HCV PCR Negative (Negative)
[2024-01-28 13:41] LABS: Syphilis Serology (RPR) Negative (Negative)
== END 2024-01-25 15:24 | disposition home or self-care (01) ==
LOC: LBO 15:23
PROVIDERS: PCP Nurse Practitioner Family; Visit Provider Obstetrics & Gynecology
DX: Z11.3 Encounter for screening for infections with a predominantly sexual mode of transmission (principal)
CPT/HCPCS: 36415; 86704; 86709; 86803; 87340; 87389; 86592

== ENCOUNTER 2024-02-08 10:50 | Outpatient (CLI) | payer MEDICAID, SELFPAY ==
--- OUTSIDE RECORDS SUMMARY | 2024-02-08 10:53 | XMS_ITS | Continuity of Care Document ---
Author Name Unknown Organization [facility] Address [address] [place] [address] Care Team Providers Care Recreation Facility Manager Name Role Phone Michele Workman Esther Primary Care Physician Encounter [facility] Date(s): 12/11/23 - 12/11/23 [facility] [address] [place] [address] Discharge Disposition: Home or Self Care Attending Physician: Maria Alejandra Abbott PA-C Admitting Physician: Maria Alejandra Abbott PA-C Allergies, Adverse Reactions, Alerts Substance Reaction Severity Status doxycycline 1 Unknown Active penicillin G sodium Tumefaction Severe Active sulfa drugs Skin rash Severe Active Clavulanic acid Unknown Active azithromycin Swelling of hand Moderate Active NSAIDs Vomiting Mild Active 1turns orange Assessment and Plan Future Scheduled Tests Laboratory* Anti Nuclear Ab (LEILA), IFA [facility] 07/10/23 * Group A Strep Culture 09/21/23 * SARS-CoV-2 (COVID-19)/Flu/RSV (GeneXpert) 09/21/23 Immunizations Given and Recorded Vaccine Date Status Refusal Reason SARS-CoV-2 (COVID-19) Ad26 vaccine 10/31/20 Record ed hepatitis B adult vaccine 09/14/10 Recorded hepatitis B adult vaccine 05/18/10 Recorded hepatitis B adult vaccine 04/12/10 Recorded influenza virus vaccine, inactivated 07/13/10 Donavan rded tetanus/diphth/pertuss (Tdap) adult/adol 08/20/09 Recorded Medications Dulera 100 mcg-5 mcg/inh inhalation aerosol INHALE 2 PUFFS BY MOUTH TWICE DAILY Start Date: 08/10/23 Status: Ordered hydrOXYzine hydrochloride 25 mg oral tablet 25 mg = 1 tab, Oral, QID, PRN as needed for anxiety, # 40 tab, 1 Refill(s), Pharmacy: [id number], 154, cm, 10/06/22 10:29:00 EST, Height/Length Dosing, 74.7, kg, 07/10/23 9:02:00 EST, Weight Dosing Start Date: 07/10/23 Status: Ordered prochlorperazine 5 mg oral tablet 5 mg = 1 tab, Oral, TID, 1-2 tabs three times a day as needed, # 30 tab, 1 Refill(s), Pharmacy: [id number], 154, cm, 10/06/22 10:29:00 EST, Height/Length Dosing, 74, kg, 10/06/22 10:29:00 EST, Weight Dosing Start Date: 04/09/23 Status: Ordered Valtrex 0 Refill(s) Start Date: 10/06/22 Status: Ordered ZyrTEC 0 Refill(s) Start Date: 10/06/22 Status: Ordered Problem List Condition Confirmation Course Effective Dates Status Health St atus Informant Bronchitis Confirmed Active Chronic cough Confirmed Active Fever Confirmed Active Fracture of left toe Confirmed Active Migraine Confirmed Active Pharyngitis Confirmed Active Sinusitis Confirmed Active Pain, dental Confirmed Active Results Orders for Microbiology Reports Name Date Throat Culture 12/11/23 Microbiology Reports TEST:Throat Culture STATUS:Order in Progress BODY SITE: SOURCE:Throat COLLECTED DATE/TIME:12/11/23 9:05 AM PRELIMINARY REPORT Normal Kirstin at 24 hours Social History Social History Type Response Tobacco Never tobacco user T obacco Use:. Sex Female Patient Care team information Care Team Personnel Name: Michele Workman EXAMINING CHAIR ASSEMBLER Position: Physician Member Role: Informed Provider Address: Address: [address] [address] [place] Care Team Related Persons Name: HECTOR NIELSEN
--- OUTSIDE RECORDS SUMMARY | 2024-02-08 10:53 | XMS_ITS | Continuity of Care Document ---
Author Name Unknown Organization [facility] Address [address] [place] [address] Care Team Providers Care Outside Sales Inspector Name Role Phone Michele Workman Primary Care Physician [facility] [id number] Date(s): 09/21/23 - 09/21/23 [facility] [address] [place] [address] Discharge Disposition: Home or Self Care Attending Physician: Calli Lau NP Admitting Physician: Calli Lau AUTOMATIC BUFFER Allergies, Adverse Reactions, Alerts Substance Reaction Severity Status doxycycline 1 Unknown Active azithromycin Swelling of hand Moderate Active penicillin G sodium Tumefaction Severe Active sulfa drugs Skin rash Severe Active NSAIDs Vomiting Mild Active Clavulanic acid Unknown Active 1turns orange Assessment and Plan Future [...] anxiety, # 40 tab, 1 Refill(s), Pharmacy: [facility], 154, cm, 10/06/22 10:29:00 EST, Height/Length Dosing, 74.7, kg, 07/10/23 9:02:00 EST, Weight Dosing Start Date: 07/10/23 Status: Ordered prochlorperazine 5 mg oral tablet 5 mg = 1 tab, Oral, TID, 1-2 tabs three times a day as needed, # 30 tab, 1 Refill(s), Pharmacy: [facility], 154, cm, 10/06/22 10:29:00 EST, Height/Length Dosing, 74, kg, 10/06/22 10:29:00 EST, Weight Dosing Start Date: 04/09/23 Status: Ordered Tylenol Cold & Flu Severe oral tablet See Instructions, Patient requests this to be added to her bag that she picks up from drive thru ifpossible due to having covid, # 24 tab, 0 Refill(s), Pharmacy: [facility], 154, cm, 10/06/22 10:29:00 EST, [...] Active Pharyngitis Confirmed Active Sinusitis Confirmed Active Social History Social History Type Response Tobacco Never tobacco user T obacco Use:. Sex Female Patient Care team information Care Team Personnel Name: Michele Workman NP Position: Physician Member Role: Informed Provider Address: Address: [address] [address]- [place] Care Team Related Persons Name: HECTOR NIELSEN
--- OUTSIDE RECORDS SUMMARY | 2024-02-08 10:53 | XMS_ITS | Continuity of Care Document ---
Author Name Unknown Organization [facility] Address [address] [place] [address] Care Team Providers Care Cafeteria Clerk Name Role Phone Michele Workman Esther Primary Care Physician [phone] Encounter [facility] [id number] Date(s): 01/15/24 - 01/15/24 [facility] [address] [place] [address] Discharge Disposition: Home Allergies, Adverse Reactions, Alerts Substance Reaction Severity [...] Culture 09/21/23 * SARS-CoV-2 (COVID-19)/Flu/RSV (GeneXpert) 09/21/23 Radiology* CT Sinus w/o Contrast 01/15/24 * CT Sinus w/ Contrast 01/15/24 Immunizations Given and Recorded Vaccine Date Status [...] TWICE DAILY Start Date: 08/10/23 Status: Ordered Flonase Allergy Relief 50 mcg/inh nasal spray 2 sprays, Nostril-Both, BID, shake well before using, # 15.8 mL, 0 Refill(s) Start Date: 01/15/24 Status: Ordered hydrOXYzine hydrochloride 25 mg oral tablet 25 mg = 1 tab, Oral, QID, PRN as needed for anxiety, # 40 tab, 1 Refill(s), Pharmacy: [facility], 154, cm, 10/06/22 10:29:00 EST, Height/Length Dosing, 74.7, kg, 07/10/23 9:02:00 EST, Weight Dosing Start Date: 07/10/23 Status: Ordered predniSONE 10 mg oral tablet See Instruction, Oral, Daily, 4 tabs daily x3 days, 3 tabs daily x3 days, 2 tabs daily x3 days, 1 tab daily x3 days, # 30 tab, 0 Refill(s), Pharmacy: [facility], 154, cm, 10/06/22 10:29:00EST, Height/Length Dosing, 76.06, kg, 01/15/24 10:59:00 EDT, Weight Dosing Start Date: 01/15/24 Status: Ordered prochlorperazine 5 mg oral tablet 5 mg = 1 tab, Oral, TID, 1-2 tabs three times a day as needed, # 30 tab, 1 Refill(s), Pharmacy: [facility], 154, cm, 10/06/22 10:29:00 EST, Height/Length Dosing, 74, kg, 10/06/22 10:29:00 EST, Weight Dosing Start Date: 04/09/23 Status: Ordered Sudafed PE Pressure+Pain+Mucus 325 mg-200 mg-5 mg oral tablet 2 tab, Oral, every 4 hr, 0 Refill(s) Start Date: 01/15/24 Status: Ordered Valtrex 0 Refill(s) Start Date: 10/06/22 Status: Ordered ZyrTEC 0 Refill(s) Start Date: 10/06/22 Status: Ordered Problem List Condition Confirmation Course Effective Dates Status Health St atus Informant Allergic rhinitis Confirmed Active Bronchitis Confirmed Active Chronic cough Confirmed Active Chronic sinusitis Confirmed Active Fever Confirmed Active Fracture of left toe Confirmed Active Migraine Confirmed Active Pharyngitis Confirmed Active Sinusitis Confirmed Active Pain, dental Confirmed Active Social History Social History Type Response Tobacco Never tobacco user T obacco Use:. Sex Female Patient Care team information Care Team Personnel Name: Michele Workman SENIOR DATA ARCHITECT Position: Physician Member Role: Informed Provider Address: Address: [address] Care Team Related Persons Name: HECTOR NIELSEN Address: Home
--- OUTSIDE RECORDS SUMMARY | 2024-02-08 10:53 | XMS_ITS | Continuity of Care Document ---
Author Name Unknown Organization [facility] Address [address] [place] [address] Care Team Providers Care Cotton Opener Name Role Phone WorkmanMichele Esther Primary Care Physician [phone] Encounter [facility] [id number] Date(s): 01/15/24 - 01/15/24 [facility] [address] [place] [address] Discharge Disposition: Home Allergies, Adverse Reactions, Alerts Substance Reaction Severity Status doxycycline 1 Unknown Active sulfa drugs Skin rash Severe Active Clavulanic acid Unknown Active azithromycin Swelling of hand Moderate Active penicillin G sodium Tumefaction Severe Active NSAIDs Vomiting Mild Active 1turns orange [...] anxiety, # 40 tab, 1 Refill(s), Pharmacy: [facility], 154, cm, 10/06/22 10:29:00 EST, Height/Length Dosing, 74.7, kg, 07/10/23 9:02:00 EST, Weight Dosing Start Date: 07/10/23 Status: Ordered predniSONE 10 mg oral tablet See Instruction, Oral, Daily, 4 tabs daily x3 days, 3 tabs daily x3 days, 2 tabs daily x3 days, 1 tab daily x3 days, # 30 tab, 0 Refill(s), Pharmacy: [facility], 154, cm, 10/06/22 10:29:00EST, Height/Length Dosing, 76.06, kg, 01/15/24 10:59:00 EDT, Weight Dosing Start Date: 01/15/24 Status: Ordered prochlorperazine 5 mg oral tablet 5 mg = 1 tab, Oral, TID, 1-2 tabs three times a day as needed, # 30 tab, 1 Refill(s), Pharmacy: [id number], 154, cm, 10/06/22 10:29:00 [...] information Care Team Personnel Name: Michele Workman CAST IRON DRAIN PIPE LAYER Position: Physician Member Role: Informed Provider Address: Address: [address] Care Team Related Persons Name: HECTOR NIELSEN Address: Home
--- OUTSIDE RECORDS SUMMARY | 2024-02-08 10:53 | XMS_ITS | Continuity of Care Document ---
Author Name Unknown Organization [facility] Address [address] [place] [address] Care Team Providers Care Rubberizing Mechanic Name Role Phone Michele Workman Primary Care Physician Encounter [facility] Date(s): 09/20/23 - 09/20/23 [facility] [address] [place] [address] Discharge Disposition: Home or Self Care Attending Physician: Calli Lau NP Admitting Physician: Calli Lau NP Referring Physician: Calli Lau MANAGING DIRECTOR Allergies, Adverse Reactions, Alerts Substance Reaction Severity Status doxycycline 1 Unknown Active azithromycin Swelling of hand Moderate Active penicillin G sodium Tumefaction Severe Active sulfa drugs Skin rash Severe Active NSAIDs Vomiting Mild Active Clavulanic acid Unknown Active 1turns orange Assessment and Plan Future Scheduled Tests Laboratory* Anti Nuclear Ab (LEILA), IFA [facility] 07/10/23 Immunizations Given and Recorded Vaccine Date Status [...] # 40 tab, 1 Refill(s), Pharmacy: [facility], 154, cm, 10/06/22 10:29:00 EST, Height/Length Dosing, 74.7, kg, 07/10/23 9:02:00 EST, Weight Dosing Start Date: 07/10/23 Status: Ordered prochlorperazine 5 mg oral tablet 5 mg = 1 tab, Oral, TID, 1-2 tabs three times a day as needed, # 30 tab, 1 Refill(s), Pharmacy: [facility], 154, cm, 10/06/22 10:29:00 EST, Height/Length Dosing, 74, kg, 10/06/22 10:29:00 EST, Weight Dosing Start Date: 04/09/23 Status: Ordered Tylenol Cold & Flu Severe oral tablet See Instructions, Patient requests this to be added to her bag that she picks up from drive thru ifpossible due to having covid, # 24 tab, 0 Refill(s), Pharmacy: [facility], 154, cm, 10/06/22 10:29:00 [...] Active Pharyngitis Confirmed Active Sinusitis Confirmed Active Results Laboratory List Name Date SARS-CoV-2 (COVID-19)/Flu/RSV (GeneXpert ) (COVID-19/Flu/RSV (GeneXpert)) 09/20/23 Most recent to oldest [Reference Range]: 1 SARS-CoV-2(Covid19)PCR(GXpert COVFLURSV) [Negative] Negative (09/20/23 11:19 AM) Flu A (GXpert COVFLURSV) [Negative] Nega tive (09/20/23 11:19 AM) RSV (GXpert COVFLURSV) [Negative] Negati ve (09/20/23 11:19 AM) Flu B (GXpert COVFLURSV) [Negative] Nega tive (09/20/23 11:19 AM) Orders for Microbiology Reports Name Date Group A Strep Culture 09/20/23 Microbiology Reports TEST:Beta Strep A Screen STATUS:Order in Progress BODY SITE: SOURCE:Throat COLLECTED DATE/TIME:09/20/23 11:19 AM PRELIMINARY REPORT No beta streptococcus isolated at 1 day. Social History Social History Type Response Tobacco Never tobacco user T obacco Use:. Sex Female Patient Care team information Care Team Personnel Name: Michele Workman MANAGING DIRECTOR Position: Physician Member Role: Informed Provider Address: Address: [address] Care Team Related Persons Name: HECTOR NIELSEN
--- OUTSIDE RECORDS SUMMARY | 2024-02-08 10:53 | XMS_ITS | Continuity of Care Document ---
Author Name Unknown Organization [facility] Address [address] [place] [address] Encounter [facility] [id number] Date(s): 01/15/24 - 01/15/24 [facility] [address] [place], [place] [address] Discharge Disposition: Home Medications Cipro 500 mg oral tablet 500 mg = 1 tab, Oral, every 12 hr, # 20 tab, 1 Refill(s), Pharmacy: [id number] Start Date: 10/11/23 Stop Date: 10/31/23 Status: Ordered
--- OUTSIDE RECORDS SUMMARY | 2024-02-08 10:53 | XMS_ITS | Continuity of Care Document ---
Author Name Unknown Organization [facility] Address [address] [place] [address] Care Team Providers Care Agriculture Instructor Name Role Phone Michele Workman Primary Care Physician Encounter [facility] Date(s): 02/04/24 - 02/04/24 [facility] [address] [place] [address] Discharge Disposition: Home or Self Care Attending Physician: Michele Workman NP Admitting Physician: Michele Workman NP Referring Physician: Michele Workman DUMPSTER DRIVER Allergies, Adverse Reactions, Alerts Substance Reaction Severity Status doxycycline 1 Unknown Active azithromycin Swelling of hand Moderate Active sulfa drugs Skin rash Severe Active Clavulanic acid Unknown Active penicillin G sodium Tumefaction Severe Active NSAIDs Vomiting Mild Active 1turns orange Assessment and Plan Future Scheduled Tests Laboratory* Anti Nuclear Ab (LEILA), IFA [facility] 07/10/23 * Group A Strep Culture 09/21/23 * SARS-CoV-2 (COVID-19)/Flu/RSV (GeneXpert) 09/21/23 Radiology* CT Sinus w/ Contrast 01/15/24 Immunizations Given [...] anxiety, # 40 tab, 1 Refill(s), Pharmacy: [facility], 154, cm, 10/06/22 10:29:00 EST, Height/Length Dosing, 74.7, kg, 07/10/23 9:02:00 EST, Weight Dosing Start Date: 07/10/23 Status: Ordered predniSONE 10 mg oral tablet See Instruction, Oral, Daily, 4 tabs daily x3 days, 3 tabs daily x3 days, 2 tabs daily x3 days, 1 tab daily x3 days, # 30 tab, 0 Refill(s), Pharmacy: [facility], 154, cm, 10/06/22 10:29:00EST, Height/Length Dosing, 76.06, kg, 01/15/24 10:59:00 EDT, Weight Dosing Start Date: 01/15/24 Status: Ordered prochlorperazine 5 mg oral tablet 5 mg = 1 tab, Oral, TID, 1-2 tabs three times a day as needed, # 30 tab, 1 Refill(s), Pharmacy: [id number], 154, cm, 10/06/22 10:29:00 [...] information Care Team Personnel Name: Michele Workman DUMPSTER DRIVER Position: Physician Member Role: Informed Provider Address: Address: [id number] [place] [address] Care Team Related Persons Name: HECTOR NIELSEN
--- OUTSIDE RECORDS SUMMARY | 2024-02-08 10:53 | XMS_ITS | Continuity of Care Document ---
Author Name Unknown Organization [facility] Address [address] [place] [address] Care Team Providers Care Parent Coach Name Role Phone Michele Workman Primary Care Physician [facility] Date(s[facility] 01/23/24 - 01/23/24 [facility] [address] [place] [address] Encounter Diagnosis Chronic sinusitis(Discharge Diagnosis) - 01/23/24 Migraine(Discharge Diagnosis) - 01/23/24 Allergic rhinitis(Discharge Diagnosis) - 01/23/24 Discharge Disposition: Home or Self Care Attending Physician: Michele Workman NP Admitting Physician: Michele Workman NP Referring Physician: Michele Workman AIR EXPORT AGENT Allergies, Adverse Reactions, Alerts Substance Reaction Severity [...] anxiety, # 40 tab, 1 Refill(s), Pharmacy: [facility], 154, cm, 10/06/22 10:29:00 EST, Height/Length Dosing, 74.7, kg, 07/10/23 9:02:00 EST, Weight Dosing Start Date: 07/10/23 Status: Ordered predniSONE 10 mg oral tablet See Instruction, Oral, Daily, 4 tabs daily x3 days, 3 tabs daily x3 days, 2 tabs daily x3 days, 1 tab daily x3 days, # 30 tab, 0 Refill(s), Pharmacy: [id number], 154, cm, 10/06/22 10:29:00EST, Height/Length Dosing, 76.06, kg, 01/15/24 10:59:00 EDT, Weight Dosing Start Date: 01/15/24 Status: Ordered prochlorperazine 5 mg oral tablet 5 mg = 1 tab, Oral, TID, 1-2 tabs three times a day as needed, # 30 tab, 1 Refill(s), Pharmacy: [id number], 154, cm, 10/06/22 10:29:00 [...] information Care Team Personnel Name: Michele Workman AIR EXPORT AGENT Position: Physician Member Role: Informed Provider Address: Address: [address] Care Team Related Persons Name: HECTOR NIELSEN
--- OUTSIDE RECORDS SUMMARY | 2024-02-08 10:54 | XMS_ITS ---
Author Name Unknown Address [address] [place] [address] [phone] Phone Organization Unknown Address [address] [place] [phone] Phone Care Team Providers Care Client Care Representative Name Role Phone BRIGETTE Neff Attending Unavailable TIM HAMILTON Primary Unavailable Results XR KNEE RT MIN 4V* - Complet ed: 08/01/2021 16:38 LOINC: RIGHT KNEE, 4 VIEWS: No priors. There is no bone, joint, or soft tissue abnormality. Dictated by: ROBY MARINA MD Transcribed by: MALIK 08/01/21/15:16 [id number] Electronically Reviewed and Signed By: BRE MARINA MD 08/03/21 12:17 Copy for: [facility] INFORMATION MG[facility] Social History Type Status Start Date End Date Code Code Syst em Smoking History Never smoker (Never Smoked) [id number] SNOMED CT Sex Female Hospital Discharge Instructions Should you have any questions prior to discharge, please contact a member of your healthcare team. If you have left the hospital and have any questions, please contact your primary care physician. Reason For Referral No Data Found Plan of Treatment No Data Found Encounters Encounter Diagnosis Start Date Code Code Sys tem 08/01/2021 [id number] SNOMED-CT Personal Care Team Section Performer Name Performer Role Active Date Inactive Da te
--- OUTSIDE RECORDS SUMMARY | 2024-02-08 10:54 | XMS_ITS | Patient Health Record ---
Author Name Unknown Organization [facility] Address [address] [place] [id number] Care Team Providers Care Web Services Developer Name Role Phone PRADEEP MONTES Unavailable [phone] Allergies Allergen (clinical drug ingredient) Drug/Non Drug Allergy documented on EMR Reaction Allergy Type Onset Date Status doxycycline Doxycycline Unknown Drug Allergy Act db Penicillin Unknown Drug Allergy Active Substance with sulfonamide structure and antibacterial mechanism of action (substance) Sulfa Antibiotics Unknown Drug Allergy Active Results Component Value Reference Range Notes -Drug Screen Reviewed date:02/07/2023 02:26:02 PM Interpretation: Performing Lab: Notes/Report: AMP Neg Neg BAR Neg Neg BUP Neg Neg BZO Neg Neg GABRIELA Neg Neg CREA 20 mg/dl 20 mg/dl, 100 mg/dl FEN Neg Neg, Pos MDMA Neg Neg MET Neg Neg MOP Neg Neg MTD Neg Neg OXY Neg Neg PCP Neg Neg pH 6.0 4.0, 6.0, 7.0, 8.0 SG 1.015 1.005, 1.015, 1.025 Temp 96.0 90-98 Deg F THC Neg Neg -PPD Reviewed date:02/10/2023 11:48:28 AM Interpretation:Negative Performing Lab: Notes/Report: Expiry Date 04/2024 Induration (mm) 0 0-15 mm Inerpretation Negative Negative Lot Number [id number] Placed by Liliya manager talent acquisition date 02/07/23 11 AM Placement Location R Forearm Read date 02/10/23 08:52AM C RN Route ID Reason For Referral No Information Medications Medication SIG (Take, Route, Frequency, Duration) Notes Start Date End Date Status ZyrTEC Allergy 10 MG 1 tablet Orally Once a day Active Albuterol Sulfate HFA 108 (90 Base) MCG/ACT 2 puffs Inhalation every 4 hours as needed. Substitute insurance approved brand if necessary Active Advair Diskus 100-50 MCG/ACT 1 puff Inhalation Twice a day Active Immunizations Vaccine Route Administration Date Status Comme nts Covid-19 [employer]enez [employer] Dose 1 Unknown 10/31/2020 Ad ministered Covid-19 Moderna Unknown 08/09/2021 Administered Hep B, adult dosage, for intramuscular use Unknown 04/12/2010 Administered Hep B, adult dosage, for intramuscular use Unknown 05/18/2010 Administered Hep B, adult dosage, for intramuscular use Unknown 09/14/2010 Administered MMR Unknown 01/23/2015 Administered Tdap Unknown 01/07/2015 Administered Vital Signs Heart Rate 76 /min 02/07/2023 passed color [...] test Encounters Encounter Location Date Provider Diagnosis [facility] [address] [place], [place] [id number] 02/07/2023 PRADEEP MONTES Pre-employment examination Z02.1 ; Pre-employment drug testing Z02.1 and Screening for tuberculosis Z11.1 Assessments Encounter Date Diagnosis (ICD Code) Assessment Notes Treatment Notes Treatment Clinical Notes 02/07/2023 Pre-employment examination (ICD-10 - Z02.1) No accomodations will be needed to allow this patient to work in the proposed position. 02/07/2023 Pre-employment drug testing (ICD-10 - Z02.1) 02/07/2023 Screening for tuberculosis (ICD-10 - Z11.1) Plan Of Treatment No Information Insurance Providers Payer Name Payer Address Payer Phone Subscriber Number Group Number Insured Name Patient Relationship to Insured Coverage Start Date Coverage End Date [employer] [facility] Adilian Mil [address] [id number] Louann Reyes Self - patient is the insured Medical (General) History Medical History History ICD Code asthma
[2024-02-13 17:36] LABS: CLASS 0; Cedar Red IgE <0.10 kU/L (<0.35); Rhodotorula IgE <0.35 kU/L (<0.35)
[2024-02-13 21:42] LABS: Cat Epithelium IgE <0.10 kU/L (<0.70); Dog Dander IgE <0.10 kU/L (<0.70); Lamb's Quarter IgE <0.10 kU/L (<0.70); Short Ragweed IgE <0.10 kU/L (<0.70); Timothy Grass IgE <0.10 kU/L (<0.70); Wormwood IgE <0.10 kU/L (<0.70)
[2024-02-14 13:23] LABS: Alternaria Tenuis IgE <0.10 kU/L (<0.70); Aspergillus Fumigatus IgE <0.10 kU/L (<0.70); Bermuda Grass IgE <0.10 kU/L (<0.70); Cladosporium IgE <0.10 kU/L (<0.70); Cocklebur IgE <0.10 kU/L (<0.70); Cockroach IgE <0.10 kU/L (<0.70); Cottonwood IgE <0.10 kU/L (<0.70); D Farinae IgE <0.10 kU/L (<0.70); D Pteronyssinus IgE <0.10 kU/L (<0.70); Eastern Sycamore IgE <0.10 kU/L (<0.70); Elm IgE <0.10 kU/L (<0.70); Epicoccum purpurascens IgE <0.10 kU/L (<0.70); Fusarium moniliforme, IgE <0.10 kU/L (<0.70); Giant Ragweed IgE <0.10 kU/L (<0.70); Oak IgE <0.10 kU/L (<0.70); Penicillin G IgE <0.10 kU/L (<0.70); Penicillin V IgE <0.10 kU/L (<0.70); Penicillium chrysogenum IgE <0.10 kU/L (<0.70); Red Sorrel IgE <0.10 kU/L (<0.70); Rough Pigweed IgE <0.10 kU/L (<0.70); Silver Birch IgE <0.10 kU/L (<0.70); Stemphyllium IgE <0.10 kU/L (<0.70); Walnut Tree IgE <0.10 kU/L (<0.70)
[2024-02-14 13:37] LABS: Amoxicillin, IgE <0.10 kU/L (<0.70)
== END 2024-02-08 10:51 | disposition home or self-care (01) ==
LOC: LBO 10:51
PROVIDERS: PCP Nurse Practitioner Family; Visit Provider Otolaryngology Otolaryngology/Facial Plastic Surgery
DX: Z88.1 Allergy status to other antibiotic agents (principal); R49.0 Dysphonia; J45.909 Unspecified asthma, uncomplicated
CPT/HCPCS: 36415; 86003